=== PATIENT | female | born 1955 | race Caucasian/White ===

== ENCOUNTER 2016-07-31 15:10 | Outpatient (CLI) | payer BC | END 2016-07-31 23:59 | DX: M54.5 Low back pain (principal); E11.9 Type 2 diabetes mellitus without complications; Z87.39 Personal history of other diseases of the musculoskeletal system and connective tissue; Z79.899 Other long term (current) drug therapy ==

== ENCOUNTER 2016-08-05 07:42 | Outpatient (CLI) | payer BC ==
[2016-08-05] MEDS ORDERED: GADOBUTROL 10 MMOL/10 ML VIAL IVP ONE (08:27)
== END 2016-08-05 07:43 | disposition home or self-care (01) ==
DX: M51.26 Other intervertebral disc displacement, lumbar region (principal); M51.24 Other intervertebral disc displacement, thoracic region; M51.36 Other intervertebral disc degeneration, lumbar region; M43.16 Spondylolisthesis, lumbar region; M43.17 Spondylolisthesis, lumbosacral region
CPT/HCPCS: 72158; A9585

== ENCOUNTER 2016-12-05 09:21 | Outpatient (CLI) | payer BC ==
[2016-12-05 09:46] LABS: BASOPHILS # (AUTO) 0.1 10^3/uL (0.0-0.1); BASOPHILS % (AUTO) 1.3 %; EOSINOPHILS # (AUTO) 0.3 10^3/uL (0.0-0.7); EOSINOPHILS % (AUTO) 4.9 %; HCT - HEMATOCRIT 40.2 % (37.0-47.0); HGB - HEMOGLOBIN 13.3 g/dL (12.0-16.0); LYMPHOCYTES # (AUTO) 2.4 10^3/uL (1.5-3.5); MEAN CORPUSCULAR HEMOGLOBIN 27.3 pg (27.0-31.0); MEAN CORPUSCULAR VOLUME 82.7 fL (81.0-99.0); MEAN PLATELET VOLUME 7.8 fL (7.9-10.8); MONOCYTES # (AUTO) 0.4 10^3/uL (0.0-1.0); MONOCYTES % (AUTO) 7.2 %; NEUTROPHILS # (AUTO) 2.7 10^3/uL (1.5-6.6); NEUTROPHILS % (AUTO) 45.6 %; RED BLOOD COUNT 4.86 10^6/uL (4.20-5.40); RED CELL DISTRIBUTION WIDTH 14.7 % (12.0-15.0); UNCORRECTED WHITE BLOOD COUNT 5.9 x10^3/uL; WHITE BLOOD COUNT 5.9 x10^3/uL (4.8-10.8)
[2016-12-05 10:06] LABS: HEMOGLOBIN A1C 0.7 g/dL
[2016-12-05 10:11] LABS: ALBUMIN/GLOBULIN RATIO 1.7 (1.0-2.2); BILIRUBIN,TOTAL 0.8 mg/dL (0.2-1.0); BUN - BLOOD UREA NITROGEN 21 mg/dL (6-20); CALCIUM 9.5 mg/dL (8.5-10.3); CARBON DIOXIDE - CO2 26 mmol/L (21-32); CHLORIDE 104 mmol/L (101-111); CHOL/HDL RATIO 5.2 (<4.4); CHOLESTEROL 201 mg/dL; CREATININE 0.7 mg/dL (0.4-1.0); GFR - MDRD 85 (>89); GLUCOSE 146 mg/dL (70-100); HDL CHOLESTEROL 39 mg/dL; LDL/HDL RATIO 3.3 (<4.4); SODIUM 138 mmol/L (135-145); TOTAL PROTEIN 6.8 g/dL (6.7-8.2); TRIGLYCERIDES 170 mg/dL; VLDL CHOLESTEROL 34 mg/dL
== END 2016-12-05 09:22 | disposition home or self-care (01) ==
LOC: LAB 09:21
PROVIDERS: ATTEND Physician Assistant Medical
DX: Z00.00 Encounter for general adult medical examination without abnormal findings (principal); E78.2 Mixed hyperlipidemia; F32.9 Major depressive disorder, single episode, unspecified; E11.9 Type 2 diabetes mellitus without complications; Z11.59 Encounter for screening for other viral diseases; Z79.899 Other long term (current) drug therapy
CPT/HCPCS: 36415; 80053; 80061; 83036; 84443; 85025; 86803

== ENCOUNTER 2016-12-26 08:51 | Outpatient (CLI) | payer BC ==
--- NOTE | 2016-12-29 16:16 | Mammography Report ---
DIGITAL SCREENING MAMMOGRAM: 12/26/2016 CLINICAL INDICATION: A 61-year-old for screening. COMPARISON: 09/2013, 04/2010, 06/2007 TECHNIQUE: Routine CC and MLO projections were obtained of the breasts. FINDINGS: Scattered fibroglandular tissue is present within the breasts. There are no dominant alfonso s, suspicious microcalcifications, or secondary signs of malignancy. In comparison to the previous st udies, there are no significant changes. ASSESSMENT: NO MAMMOGRAPHIC EVIDENCE OF MALIGNANCY. NO SIGNIFICANT INTERVAL CHANGES. RECOMMENDATION: Screening mammography is recommended annually. BIRADS category 1 - negative. STANDARD QUALIFYING STATEMENTS 1. This examination was reviewed with the aid of Computed-Aided Detection (CAD). 2. A negative or benign imaging report should not delay biopsy if clinically suspicious findings are present. Consider surgical consultation if warranted. More than 5% of cancers are not identified by i maging. 3. Dense breasts may obscure an underlying neoplasm. JOB #: [id number] EXT JOB #:[id number]
== END 2016-12-26 08:52 | disposition home or self-care (01) ==
LOC: DI 08:51
PROVIDERS: ATTEND Physician Assistant Medical
DX: Z12.31 Encounter for screening mammogram for malignant neoplasm of breast (principal)
CPT/HCPCS: 77067

== ENCOUNTER 2016-12-26 08:55 | Outpatient (CLI) | payer BC ==
--- NOTE | 2016-12-26 13:35 | DEXA Report ---
DEXA BONE MINERAL DENSITY SCAN: 12/26/2016 CLINICAL HISTORY: A 61-year-old postmenopausal female. TECHNIQUE: Dual energy x-ray absorptiometry (DXA) was performed on a [employer] system. Regions measured are the AP spine, femoral neck, and, if needed, forearm. COMPARISON: None. In accordance with the International Society for Clinical Densitometry (ISCD) guidelines, data from previous exams may be reanalyzed using current recommendations and techniques. This is done to allow a more accurate basis for comparison with the current study. The data for the hip is as follows: REGION BMD (g/cm/cm) T-SCORE Z-SCORE Neck 0.912 -0.9 -0.3 TOTAL 0.997 -0.1 0.1 NOTE: The femoral neck or total proximal femur, whichever is lowest, is used for classification. The data for the forearm is as follows: REGION BMD (g/cm/cm) T-SCORE Z-SCORE 1/3 0.849 -0.3 0.7 NOTE: The 33% radius of the nondominant forearm is used for classification. IMPRESSION: THE FEMORAL NECK T-SCORE IS -0.9. THIS IS WITHIN NORMAL LIMITS ACCORDING TO THE WORLD HEALTH ORGANIZATION GUIDELINES. TOTAL HIP T-SCORE IS -0.1. THIS IS WITHIN NORMAL LIMITS ACCORDING TO THE WORLD HEALTH ORGANIZATION GUIDELINES. THE RADIUS 33% T-SCORE IS -0.3. THIS IS WITHIN NORMAL LIMITS ACCORDING TO THE WORLD HEALTH ORGANIZATION GUIDELINES. THE WHO CLASSIFICATION BASED ON THE INTERNATIONAL REFERENCE STANDARD IS NORMAL. THE PATIENT HAS NO INCREASED FRACTURE RISK. RECOMMENDATION: Patients with diagnosis of osteoporosis or osteopenia should have regular bone mineral density assessment. For those eligible for Medicare, routine testing is allowed once every 2 years. Testing frequency can be increased for patients who have rapidly progressing disease or for those who are receiving medical therapy to restore bone mass. COMMENT: World Health Organization (WHO) definitions for osteoporosis and osteopenia: NORMAL BMD: T-score at -1.0 or higher, fracture risk is low. OSTEOPENIA BMD: T-score between -1.0 and -2.5, fracture risk is increased. OSTEOPOROSIS BMD: T-score at -2.5 or lower, fracture risk high. National Osteoporosis Foundation recommends: 1. Obtain adequate dietary calcium (at least 1200 mg per day) and vitamin D (400 -800 international units per day). 2. Participate, as appropriate, in regular weightbearing and muscle- strengthening exercise. 3. Avoid tobacco use and reduce alcohol and caffeine intake. 4. For more detailed information see the website at www.NOF.org. MTDD
== END 2016-12-26 08:56 | disposition home or self-care (01) ==
LOC: DI 08:55
PROVIDERS: ATTEND Physician Assistant Medical
DX: Z13.820 Encounter for screening for osteoporosis (principal); Z78.0 Asymptomatic menopausal state
CPT/HCPCS: 77080; 77081

== ENCOUNTER 2017-04-27 07:48 | Outpatient (CLI) | payer BC ==
[2017-04-27 08:27] LABS: HEMOGLOBIN A1C 0.66 g/dL
== END 2017-04-27 07:49 | disposition home or self-care (01) ==
LOC: LAB 07:48
PROVIDERS: ATTEND Physician Assistant Medical
DX: E11.9 Type 2 diabetes mellitus without complications (principal); Z79.899 Other long term (current) drug therapy
CPT/HCPCS: 36415; 82947; 83036

== ENCOUNTER 2017-06-01 13:08 | Outpatient (CLI) | payer BC | END 2017-06-01 13:09 | disposition home or self-care (01) | LOC: SC 13:08 | PROVIDERS: ATTEND Internal Medicine Pulmonary Disease | DX: G47.33 Obstructive sleep apnea (adult) (pediatric) (principal) | CPT/HCPCS: 99212; 99213 ==

== ENCOUNTER 2017-06-24 15:35 | Outpatient (CLI) | payer BC ==
--- NOTE | 2017-06-25 11:58 | CT Report ---
CT LUMBAR SPINE WITHOUT CONTRAST: 06/24/2017 CLINICAL INDICATION: History of fusion, pain. TECHNIQUE: Axial CT images of the lumbar spine were obtained without contrast, following which, sagittal and coronal reconstructions were performed. In accordance with CT protocol optimization, one or more of the following dose reduction techniques were utilized for this exam: Automated exposure control, adjustment of mA and/or KV based on patient size, or use of iterative reconstructive technique. FINDINGS: The lumbar vertebral bodies demonstrate normal height. Degenerative disk and facet disease is present. There is minimal anterolisthesis of L4 on L5. Previous posterior element fusion plates span L3 through L5. The T12-L1 disk demonstrates extensive degenerative changes, with osseous fusion of the disk space. Left foraminal narrowing is present. The L1-L2 disk demonstrates asymmetric disk bulge, left greater than right, producing left foraminal narrowing, but no significant spinal stenosis. At L2-L3, there is broad-based disk bulge without significant spinal or foraminal narrowing. At L3-L4, there is asymmetric disc osteophyte, left greater than right, producing left foraminal narrowing and no significant spinal stenosis. At L4-L5, there is broad-based disk bulge and facet hypertrophy, producing mild spinal stenosis and bilateral foraminal narrowing. At L5-S1, there is bulky facet arthropathy, left greater than right, with left foraminal narrowing. No significant spinal stenosis is present. IMPRESSION: POSTOPERATIVE CHANGES. MULTILEVEL NEURAL FORAMINAL NARROWING. MILD SPINAL STENOSIS AT L4-L5. ERON/ TD: 06/25/2017 12:57 [facility]
== END 2017-06-24 15:36 | disposition home or self-care (01) ==
LOC: DI 15:35
PROVIDERS: ATTEND Neurological Surgery
DX: M48.061 Spinal stenosis, lumbar region without neurogenic claudication (principal); M70.61 Trochanteric bursitis, right hip
CPT/HCPCS: 72131

== ENCOUNTER 2017-07-13 10:08 | Outpatient (CLI) | payer BC | END 2017-07-13 10:09 | disposition home or self-care (01) | LOC: SC 10:08 | PROVIDERS: ATTEND Internal Medicine Pulmonary Disease | DX: G47.33 Obstructive sleep apnea (adult) (pediatric) (principal) | CPT/HCPCS: 99212; 99213 ==

== ENCOUNTER 2017-08-04 09:43 | Outpatient (CLI) | payer BC ==
[2017-08-04 10:53] LABS: ALBUMIN 4.1 g/dL (3.2-5.5); ALBUMIN/GLOBULIN RATIO 1.3 (1.0-2.2); BILIRUBIN,TOTAL 0.5 mg/dL (0.2-1.0); CALCIUM 9.5 mg/dL (8.5-10.3); CREATININE 0.7 mg/dL (0.4-1.0); TOTAL PROTEIN 7.2 g/dL (6.7-8.2)
[2017-08-04 11:34] LABS: HB2 TOTAL 15.1 g/dL; HEMOGLOBIN A1C 0.7 g/dL; HEMOGLOBIN A1C % 6.4 % (4.6-6.2)
== END 2017-08-04 09:44 | disposition home or self-care (01) ==
LOC: LAB 09:43
PROVIDERS: ATTEND Physician Assistant Medical
DX: E11.9 Type 2 diabetes mellitus without complications (principal); Z79.899 Other long term (current) drug therapy
CPT/HCPCS: 36415; 80053; 83036

== ENCOUNTER 2017-09-14 10:03 | Outpatient (CLI) | payer BC | END 2017-09-14 10:04 | disposition critical access hospital (66) | LOC: EMS 10:03 | PROVIDERS: ATTEND Surgery | DX: R41.0 Disorientation, unspecified (principal); R50.9 Fever, unspecified | CPT/HCPCS: A0425; A0427 ==

== ENCOUNTER 2017-09-14 10:20 | Emergency (ER) | payer BC ==
[2017-09-14] MEDS ORDERED: VANCOMYCIN INJ 1 GM in SODIUM CHLORIDE 0.9% 250 ML IV STA (10:30)
[2017-09-14] MEDS ORDERED: ACETAMINOPHEN 1,000 MG/100 ML 100 ML IV STA (10:30)
[2017-09-14] MEDS ORDERED: PIPERACILLIN/TAZOBACTAM 3.375 GM in SODIUM CHLORIDE 0.9% MINIBAG 100 ML IV STA (10:30)
[2017-09-14] MEDS ORDERED: SODIUM CHLORIDE 0.9% 1,000 ML IV ONE (10:30)
--- NOTE | 2017-09-14 10:36 | ED Physician Documentation ---
History of Present Illness - Stated complaint Stated Complaint: SEPSIS - Chief complaint Chief Complaint: General - Additonal information Additional information: hx from EMS and 62 female diabetic s/p 11 hr spine surgery with hardware at [facility] 09/09 admitted for several days then to SNF then signed out of SNF and home X 2-3 days was OK yesterday - back pain but no fever cough NVD urinary sx this AM found her in bed unresponsive and febrile no fall FSBS > 200 Review of Systems Unable to obtain: Unresponsive Constitutional: reports: Fever PD PAST MEDICAL HISTORY - Past Medical History Cardiovascular: None Respiratory: None Neuro: Other Endocrine/Autoimmune: Type 2 diabetes GI: GERD HEENT: None Psych: Post traumatic stress disorder Musculoskeletal: Chronic back pain, Other Derm: Other - Past Surgical History Past Surgical History: Yes General: Appendectomy /DIRECTOR E LEARNING: section - Present Medications Home Medications: Ambulatory Orders Medication Instructions Recorded Confirmed DULoxetine [Cymbalta] 30 mg PO BID 03/16/15 03/16/15 HYDROmorphone [Dilaudid] 1 tab PO Q4HR 03/16/15 03/16/15 Ketorolac [Toradol] 1 tab PO QID 03/16/15 03/16/15 Losartan Potassium 1 tab PO DAILY 03/16/15 03/16/15 Metformin HCl 1 tab PO DAILY 03/16/15 03/16/15 Methocarbamol [Robaxin-750] 1 tab PO QID 03/16/15 03/16/15 Omeprazole 1 tab PO DAILY 03/16/15 03/16/15 Ondansetron HCl [Zofran] 1 tab PO Q6HR 03/16/15 03/16/15 Zolpidem Tartrate 1 tab PO QPM PRN 03/16/15 03/16/15 Cyclobenzaprine HCl 09/14/17 Gabapentin 300 09/14/17 Oxycodone HCl/Acetaminophen 09/14/17 [Oxycodone-Acetaminophen 5-325] - Allergies Allergies/Adverse Reactions: Allergies Allergy/AdvReac Type Severity Reaction Status Date / Time No Known Drug Allergies Allergy Verified 02/14/15 19:07 - Social History Does the pt smoke?: No Smoking Status: Never smoker Does the pt drink ETOH?: No Does the pt have substance abuse?: No PD ED PE NORMAL - Vitals Vital signs reviewed: Yes - General General: No: Alert and oriented X 3 (opens eyes to loud voice but does not answer questions or follow commands) - HEENT HEENT: Atraumatic, PERRL. No: Moist mucous membranes (dry) - Cardiac Cardiac: RRR (tachy) - Respiratory Respiratory: Other (coarse rachel) - Abdomen Abdomen: Non tender, Other (bruising to LLQ abd wall and some small sore to RLQ abd wall suggestive of recent lovenox or insulin injections) - Back Back: Other (dirty soiled dressing, op site with running suture is red and inflammed, no dc) - Derm Derm: Other (warm to touch) - Neuro Neuro: Other (moves all ext). No: Alert and oriented X 3 Results - Vitals Vitals: Vital Signs - 24 hr 09/14/17 09/14/17 09/14/17 10:20 11:00 11:36 Temperature 39.5 C H 40.2 C H Heart Rate 111 H 106 H 119 H Respiratory 24 24 15 Rate Blood Pressure 167/73 H 152/80 H 152/80 H O2 Saturation 87 L 96 93 09/14/17 09/14/17 09/14/17 11:45 12:00 12:15 Temperature Heart Rate 106 H 106 H 102 H Respiratory 24 24 22 Rate Blood Pressure 127/68 134/67 H 131/72 H O2 Saturation 95 96 95 09/14/17 12:25 Temperature 37.4 C Heart Rate 98 Respiratory 20 Rate Blood Pressure 135/62 H O2 Saturation 95 Oxygen O2 Source Nasal cannula Oxygen Flow Rate 4 - EKG (time done) 0939 Rate: Rate (enter#) (108) Rhythm: Sinus tachycardia Chapin: Normal Intervals: Normal [place] QRS: Normal Ischemia: Normal ST segments - Labs Labs: Laboratory Tests 09/14/17 09/14/17 09/14/17 10:35 10:35 10:35 WBC 27.8 H RBC 3.16 L Hgb 8.4 L Hct 26.2 L MCV 82.9 MCH 26.7 L MCHC 32.3 RDW 14.7 Plt Count 510 H MPV 7.3 L Neut # Not Reportable Lymph # Not Reportable [place] # Not Reportable Eos # Not Reportable Baso # Not Reportable Absolute Nucleated RBC Not Reportable Total Counted 100 Band Neuts % (Manual) 9 Reactive Lymphs % (Man) 2 Abnorm Lymph % (Manual) 0 Nucleated RBC % Not Reportable Neutrophils # (Manual) 26.7 H Lymphocytes # (Manual) 0.6 L Monocytes # (Manual) 0.6 Eosinophils # (Manual) 0.0 Basophils # (Manual) 0.0 Differential Comment MANUAL DIFFERENTIAL Manual Slide Review Indicated Platelet Morphology RARE GIANT PLATELETS RBC Morph Micro Appear 1+ POLYCHROMASIA Sodium 132 L Potassium 3.9 Chloride 98 L Carbon Dioxide 23 Anion Gap 11.0 BUN 13 Creatinine 0.7 Estimated GFR (MDRD) 85 L Glucose 240 H Lactic Acid Calcium 8.6 Troponin I < 0.04 Urine Color Urine Clarity Urine pH Ur Specific [place] Urine Protein Urine Glucose (UA) Urine Ketones Urine Occult Blood Urine Nitrite Urine Bilirubin Urine Urobilinogen Ur Leukocyte Esterase Ur Microscopic Review Urine Culture Comments 09/14/17 09/14/17 10:35 11:30 WBC RBC Hgb Hct MCV MCH MCHC RDW Plt Count MPV Neut # Lymph # [place] # Eos # Baso # Absolute Nucleated RBC Total Counted Band Neuts % (Manual) Reactive Lymphs % (Man) Abnorm Lymph % (Manual) Nucleated RBC % Neutrophils # (Manual) Lymphocytes # (Manual) Monocytes # (Manual) Eosinophils # (Manual) Basophils # (Manual) Differential Comment Manual Slide Review Platelet Morphology RBC Morph Micro Appear Sodium Potassium Chloride Carbon Dioxide Anion Gap BUN Creatinine Estimated GFR (MDRD) Glucose Lactic Acid 1.3 Calcium Troponin I Urine Color YELLOW Urine Clarity CLEAR Urine pH 7.0 Ur Specific [place] 1.015 Urine Protein TRACE Urine Glucose (UA) NEGATIVE Urine Ketones NEGATIVE Urine Occult Blood NEGATIVE Urine Nitrite NEGATIVE Urine Bilirubin NEGATIVE Urine Urobilinogen 0.2 (NORMAL) Ur Leukocyte Esterase NEGATIVE Ur Microscopic Review NOT INDICATED Urine Culture Comments NOT INDICATED - Rads (name of study) CXR Radiology: See rad report (rotated but looks like RML infilate suggesting aspiration, per rad ADRIAN infiltrate as well) PD MEDICAL DECISION MAKING - ED course ED course: post op sepsis - source appears to be surgical site as it is erythematous - given vanco zosyn immediately after eval - CXR also shows possible apsiration and pt is hypox - zosyn should cover - on O2, maintaining her airway at this time (breathing spont has a gag, not vomiting) spoke to spine surgeon Dr Kaplan who would like pt in the ICU at 1230 called [facility] setup operator Dr Diestelohorst who accepts in transfer pt respinded well to IV ab and fluids and ofirmev fever down, HR down, sats up, still altered, never hypotensive Departure - Departure Disposition: 02 Transfer Acute Care Hosp Clinical Impression: Sepsis, Pneumonia, Post-operative complication, Anemia, Diabetes Condition: Serious
[2017-09-14 10:45] LABS: BASOPHILS % (AUTO) 0.6 %; EOSINOPHILS % (AUTO) 0.1 %; HGB - HEMOGLOBIN 8.4 g/dL (12.0-16.0); LYMPHOCYTES % (AUTO) 2.2 %; MEAN CORPUSCULAR HEMOGLOBIN 26.7 pg (27.0-31.0); MEAN CORPUSCULAR HGB CONC 32.3 g/dL (32.0-36.0); MEAN CORPUSCULAR VOLUME 82.9 fL (81.0-99.0); MEAN PLATELET VOLUME 7.3 fL (7.9-10.8); MONOCYTES % (AUTO) 4.5 %; NEUTROPHILS % (AUTO) 92.6 %; PLT - PLATELET COUNT 510 10^3/uL (130-450); RED BLOOD COUNT 3.16 10^6/uL (4.20-5.40); RED CELL DISTRIBUTION WIDTH 14.7 % (12.0-15.0); WHITE BLOOD COUNT 27.8 x10^3/uL (4.8-10.8)
[2017-09-14 10:53] LABS: CALCIUM 8.6 mg/dL (8.5-10.3); CREATININE 0.7 mg/dL (0.4-1.0)
[2017-09-14 11:01] LABS: ABNORMAL LYMPHS % (MANUAL) 0 %; LYMPHOCYTES % (MANUAL) 0 %
[2017-09-14 11:03] LABS: BAND NEUTROPHILS % (MANUAL) 9 %; LYMPHOCYTES # (MANUAL) 0.6 10^3/uL (1.5-3.5); MONOCYTES # (MANUAL) 0.6 10^3/uL (0.0-1.0); NEUTROPHILS # (MANUAL) 26.7 10^3/uL (1.5-6.6); NEUTROPHILS % (MANUAL) 87 %
[2017-09-14 11:04] LABS: DIFFERENTIAL COMMENT MANUAL DIFFERENTIAL; PLATELET MORPHOLOGY RARE GIANT PLATELETS (NORMAL)
[2017-09-14 11:35] LABS: BILIRUBIN,URINE NEGATIVE (NEGATIVE); GLUCOSE, URINE (UA) NEGATIVE (NEGATIVE); KETONES,URINE (UA) NEGATIVE (NEGATIVE); LEUKOCYTE ESTERASE, URINE NEGATIVE (NEGATIVE); NITRITE,URINE NEGATIVE (NEGATIVE); OCCULT BLOOD,URINE NEGATIVE (NEGATIVE); PROTEIN,URINE TRACE mg/dL (NEGATIVE); UROBILINOGEN,URINE 0.2 (NORMAL) E.U./dL (NORMAL)
[2017-09-14 11:36] LABS: CLARITY,URINE CLEAR (CLEAR)
[2017-09-14] MEDS ORDERED: SODIUM CHLORIDE 0.9% 2,000 ML IV ONE (12:02)
--- NOTE | 2017-09-14 12:49 | XRAY Preliminary Report ---
Exam: XR CHEST 1 VIEW X-RAY IMPRESSION: 1. Prominent right suprahilar region possible infiltrate versus rotation. 2. Patchy infiltrate left upper lobe RADIA SITE ID: [id number]
--- NOTE | 2017-09-14 12:49 | XRAY Report ---
EXAM: CHEST RADIOGRAPHY EXAM DATE: 09/14/2017 12:14 PM. CLINICAL HISTORY: Septic hypoxic. COMPARISON: None. TECHNIQUE: 1 view. FINDINGS: Lungs/Pleura: Prominence in the right suprahilar region. Increased parenchymal markings left upper herberth ng. No effusion. Decreased lung volumes Mediastinum: Mild cardiomegaly Other: Cervical spine plates IMPRESSION: 1. Prominent right suprahilar region possible infiltrate versus rotation. 2. Patchy infiltrate left upper lobe RADIA Referring Provider Line: [phone] SITE ID: [id number]
[2017-09-14] MEDS ORDERED: LACTATED RINGERS 1,000 ML IV STA (13:06)
[2017-09-14 14:47] VITALS: BP 133/76
== END 2017-09-14 14:17 | disposition short-term general hospital (02) ==
LOC: EDUNIT# → ED 10:20
DX: A41.9 Sepsis, unspecified organism (principal); J18.9 Pneumonia, unspecified organism; T81.4XXA Infection following a procedure, initial encounter; D64.9 Anemia, unspecified; E11.9 Type 2 diabetes mellitus without complications; Z79.84 Long term (current) use of oral hypoglycemic drugs
CPT/HCPCS: 36415; 51702; 71045; 80048; 81003; 83605; 84484; 85025; 87040; 93005; 96365; 96367; 96368; 99285; J0131; J3370; J7120; 81001; 87086

== ENCOUNTER 2017-09-14 14:20 | Outpatient (CLI) | payer BC | END 2017-09-14 23:59 | disposition short-term general hospital (02) | LOC: EMS 14:20 | PROVIDERS: ATTEND Surgery | DX: T81.4XXA Infection following a procedure, initial encounter (principal) | CPT/HCPCS: A0425; A0426 ==

== ENCOUNTER 2017-09-29 11:50 | Outpatient (CLI) | payer BC ==
[2017-09-29 12:34] LABS: BASOPHILS # (AUTO) 0.1 10^3/uL (0.0-0.1); BASOPHILS % (AUTO) 1.1 %; EOSINOPHILS # (AUTO) 0.1 10^3/uL (0.0-0.7); EOSINOPHILS % (AUTO) 1.6 %; HGB - HEMOGLOBIN 9.9 g/dL (12.0-16.0); LYMPHOCYTES # (AUTO) 1.6 10^3/uL (1.5-3.5); LYMPHOCYTES % (AUTO) 18.8 %; MEAN CORPUSCULAR HEMOGLOBIN 26.4 pg (27.0-31.0); MEAN CORPUSCULAR VOLUME 80.1 fL (81.0-99.0); MEAN PLATELET VOLUME 7.6 fL (7.9-10.8); MONOCYTES # (AUTO) 0.7 10^3/uL (0.0-1.0); MONOCYTES % (AUTO) 8.7 %; NEUTROPHILS % (AUTO) 69.8 %; PLT - PLATELET COUNT 544 10^3/uL (130-450); RED BLOOD COUNT 3.77 10^6/uL (4.20-5.40); RED CELL DISTRIBUTION WIDTH 15.7 % (12.0-15.0); WHITE BLOOD COUNT 8.6 x10^3/uL (4.8-10.8)
[2017-09-29 12:53] LABS: ALBUMIN 3.5 g/dL (3.2-5.5); ALBUMIN/GLOBULIN RATIO 1.1 (1.0-2.2); ALKALINE PHOSPHATASE 87 IU/L (42-121); ALT ALANINE AMINOTRANSFERASE 21 IU/L (10-60); AST ASPARTATE AMINOTRANSFERASE 22 IU/L (10-42); BILIRUBIN,TOTAL 0.4 mg/dL (0.2-1.0); BUN - BLOOD UREA NITROGEN 15 mg/dL (6-20); CALCIUM 9.4 mg/dL (8.5-10.3); CARBON DIOXIDE - CO2 25 mmol/L (21-32); CHLORIDE 102 mmol/L (101-111); CK- CREATINE KINASE 29 IU/L (22-269); CREATININE 0.7 mg/dL (0.4-1.0); GFR - MDRD 85 (>89); GLUCOSE 100 mg/dL (70-100); SODIUM 136 mmol/L (135-145); TOTAL PROTEIN 6.7 g/dL (6.7-8.2)
[2017-09-29 12:55] LABS: CRP - C-REACTIVE PROTEIN < 1.0 mg/dL (0-1.0)
== END 2017-09-29 11:51 | disposition home or self-care (01) ==
LOC: LAB.R 11:50
PROVIDERS: ATTEND Internal Medicine Infectious Disease
DX: T81.4XXA Infection following a procedure, initial encounter (principal); A41.51 Sepsis due to Escherichia coli [E. coli]
CPT/HCPCS: 80053; 82550; 85025; 85651; 86140

== ENCOUNTER 2017-10-05 23:31 | Outpatient (CLI) | payer BC ==
[2017-10-05 19:10] LABS: ALBUMIN 3.9 g/dL (3.2-5.5); ALBUMIN/GLOBULIN RATIO 1.3 (1.0-2.2); ALKALINE PHOSPHATASE 74 IU/L (42-121); ALT ALANINE AMINOTRANSFERASE 22 IU/L (10-60); AST ASPARTATE AMINOTRANSFERASE 25 IU/L (10-42); BILIRUBIN,TOTAL 0.6 mg/dL (0.2-1.0); BUN - BLOOD UREA NITROGEN 16 mg/dL (6-20); CALCIUM 9.8 mg/dL (8.5-10.3); CARBON DIOXIDE - CO2 28 mmol/L (21-32); CHLORIDE 101 mmol/L (101-111); CK- CREATINE KINASE 134 IU/L (22-269); CREATININE 0.6 mg/dL (0.4-1.0); GFR - MDRD 102 (>89); GLUCOSE 87 mg/dL (70-100); SODIUM 137 mmol/L (135-145)
[2017-10-05 19:12] LABS: BASOPHILS # (AUTO) 0.2 10^3/uL (0.0-0.1); EOSINOPHILS # (AUTO) 0.1 10^3/uL (0.0-0.7); EOSINOPHILS % (AUTO) 1.6 %; HGB - HEMOGLOBIN 10.6 g/dL (12.0-16.0); LYMPHOCYTES # (AUTO) 2.1 10^3/uL (1.5-3.5); LYMPHOCYTES % (AUTO) 22.9 %; MEAN CORPUSCULAR HEMOGLOBIN 25.7 pg (27.0-31.0); MEAN CORPUSCULAR HGB CONC 31.8 g/dL (32.0-36.0); MEAN CORPUSCULAR VOLUME 80.8 fL (81.0-99.0); MEAN PLATELET VOLUME 8.2 fL (7.9-10.8); MONOCYTES # (AUTO) 0.5 10^3/uL (0.0-1.0); MONOCYTES % (AUTO) 5.7 %; NEUTROPHILS # (AUTO) 6.1 10^3/uL (1.5-6.6); NEUTROPHILS % (AUTO) 67.8 %; PLT - PLATELET COUNT 451 10^3/uL (130-450); RED BLOOD COUNT 4.13 10^6/uL (4.20-5.40); RED CELL DISTRIBUTION WIDTH 16.2 % (12.0-15.0)
[2017-10-05 19:19] LABS: CRP - C-REACTIVE PROTEIN < 1.0 mg/dL (0-1.0)
== END 2017-10-05 23:32 | disposition home or self-care (01) ==
LOC: LAB.R 23:31
PROVIDERS: ATTEND Internal Medicine Infectious Disease
DX: T81.4XXA Infection following a procedure, initial encounter (principal); A41.51 Sepsis due to Escherichia coli [E. coli]
CPT/HCPCS: 80053; 82550; 85025; 85651; 86140

== ENCOUNTER 2017-10-12 08:00 | Outpatient (CLI) | payer BC ==
[2017-10-12 19:03] LABS: BASOPHILS # (AUTO) 0.1 10^3/uL (0.0-0.1); BASOPHILS % (AUTO) 0.9 %; EOSINOPHILS # (AUTO) 0.3 10^3/uL (0.0-0.7); EOSINOPHILS % (AUTO) 3.8 %; LYMPHOCYTES # (AUTO) 1.9 10^3/uL (1.5-3.5); LYMPHOCYTES % (AUTO) 22.6 %; MEAN CORPUSCULAR HEMOGLOBIN 25.5 pg (27.0-31.0); MEAN CORPUSCULAR VOLUME 79.6 fL (81.0-99.0); MEAN PLATELET VOLUME 8.1 fL (7.9-10.8); MONOCYTES # (AUTO) 0.7 10^3/uL (0.0-1.0); MONOCYTES % (AUTO) 7.6 %; NEUTROPHILS # (AUTO) 5.6 10^3/uL (1.5-6.6); NEUTROPHILS % (AUTO) 65.1 %; PLT - PLATELET COUNT 424 10^3/uL (130-450); RED BLOOD COUNT 4.33 10^6/uL (4.20-5.40); RED CELL DISTRIBUTION WIDTH 15.5 % (12.0-15.0); WHITE BLOOD COUNT 8.5 x10^3/uL (4.8-10.8)
[2017-10-12 19:17] LABS: ALBUMIN 3.9 g/dL (3.2-5.5); ALBUMIN/GLOBULIN RATIO 1.3 (1.0-2.2); BILIRUBIN,TOTAL 0.6 mg/dL (0.2-1.0); CALCIUM 9.6 mg/dL (8.5-10.3); CREATININE 0.6 mg/dL (0.4-1.0); TOTAL PROTEIN 6.9 g/dL (6.7-8.2)
== END 2017-10-12 08:01 | disposition home or self-care (01) ==
LOC: LAB.R 08:00
PROVIDERS: ATTEND Internal Medicine Infectious Disease
DX: T81.4XXA Infection following a procedure, initial encounter (principal); A41.51 Sepsis due to Escherichia coli [E. coli]
CPT/HCPCS: 80053; 82550; 85025; 85651; 86140

== ENCOUNTER 2017-10-19 08:00 | Outpatient (CLI) | payer BC ==
[2017-10-19 12:42] LABS: BASOPHILS # (AUTO) 0.1 10^3/uL (0.0-0.1); EOSINOPHILS # (AUTO) 0.2 10^3/uL (0.0-0.7); EOSINOPHILS % (AUTO) 3.1 %; HGB - HEMOGLOBIN 11.4 g/dL (12.0-16.0); LYMPHOCYTES # (AUTO) 2.2 10^3/uL (1.5-3.5); LYMPHOCYTES % (AUTO) 27.8 %; MEAN CORPUSCULAR HEMOGLOBIN 25.7 pg (27.0-31.0); MEAN CORPUSCULAR HGB CONC 32.7 g/dL (32.0-36.0); MEAN CORPUSCULAR VOLUME 78.7 fL (81.0-99.0); MEAN PLATELET VOLUME 7.8 fL (7.9-10.8); MONOCYTES # (AUTO) 0.6 10^3/uL (0.0-1.0); MONOCYTES % (AUTO) 7.5 %; NEUTROPHILS # (AUTO) 4.7 10^3/uL (1.5-6.6); NEUTROPHILS % (AUTO) 60.6 %; PLT - PLATELET COUNT 403 10^3/uL (130-450); RED BLOOD COUNT 4.42 10^6/uL (4.20-5.40); RED CELL DISTRIBUTION WIDTH 15.5 % (12.0-15.0); WHITE BLOOD COUNT 7.8 x10^3/uL (4.8-10.8)
[2017-10-19 13:04] LABS: ALBUMIN 4.1 g/dL (3.2-5.5); ALBUMIN/GLOBULIN RATIO 1.2 (1.0-2.2); ALKALINE PHOSPHATASE 71 IU/L (42-121); ALT ALANINE AMINOTRANSFERASE 30 IU/L (10-60); AST ASPARTATE AMINOTRANSFERASE 30 IU/L (10-42); BILIRUBIN,TOTAL 0.3 mg/dL (0.2-1.0); BUN - BLOOD UREA NITROGEN 16 mg/dL (6-20); CALCIUM 9.8 mg/dL (8.5-10.3); CARBON DIOXIDE - CO2 28 mmol/L (21-32); CHLORIDE 102 mmol/L (101-111); CK- CREATINE KINASE 126 IU/L (22-269); CREATININE 0.7 mg/dL (0.4-1.0); CRP - C-REACTIVE PROTEIN < 1.0 mg/dL (0-1.0); GFR - MDRD 85 (>89); GLUCOSE 101 mg/dL (70-100); SODIUM 138 mmol/L (135-145); TOTAL PROTEIN 7.4 g/dL (6.7-8.2)
== END 2017-10-19 08:01 | disposition home or self-care (01) ==
LOC: LAB.WCP 08:00
PROVIDERS: ATTEND Internal Medicine Infectious Disease
DX: T81.4XXA Infection following a procedure, initial encounter (principal); A41.51 Sepsis due to Escherichia coli [E. coli]
CPT/HCPCS: 80053; 82550; 85025; 85651; 86140

== ENCOUNTER 2017-10-26 09:20 | Outpatient (CLI) | payer BC ==
[2017-10-26 13:14] LABS: BASOPHILS # (AUTO) 0.1 10^3/uL (0.0-0.1); BASOPHILS % (AUTO) 0.7 %; EOSINOPHILS # (AUTO) 0.3 10^3/uL (0.0-0.7); EOSINOPHILS % (AUTO) 3.1 %; HGB - HEMOGLOBIN 11.5 g/dL (12.0-16.0); LYMPHOCYTES # (AUTO) 2.2 10^3/uL (1.5-3.5); LYMPHOCYTES % (AUTO) 27.8 %; MEAN CORPUSCULAR HEMOGLOBIN 25.6 pg (27.0-31.0); MEAN CORPUSCULAR HGB CONC 32.8 g/dL (32.0-36.0); MEAN CORPUSCULAR VOLUME 78.1 fL (81.0-99.0); MEAN PLATELET VOLUME 8.2 fL (7.9-10.8); MONOCYTES # (AUTO) 0.6 10^3/uL (0.0-1.0); MONOCYTES % (AUTO) 7.3 %; NEUTROPHILS # (AUTO) 4.9 10^3/uL (1.5-6.6); NEUTROPHILS % (AUTO) 61.1 %; PLT - PLATELET COUNT 380 10^3/uL (130-450); RED BLOOD COUNT 4.48 10^6/uL (4.20-5.40); RED CELL DISTRIBUTION WIDTH 15.6 % (12.0-15.0); WHITE BLOOD COUNT 8.1 x10^3/uL (4.8-10.8)
[2017-10-26 13:50] LABS: ALBUMIN/GLOBULIN RATIO 1.3 (1.0-2.2); BILIRUBIN,TOTAL 0.2 mg/dL (0.2-1.0); CALCIUM 9.5 mg/dL (8.5-10.3); CREATININE 0.6 mg/dL (0.4-1.0); TOTAL PROTEIN 7.1 g/dL (6.7-8.2)
== END 2017-10-26 09:21 | disposition home or self-care (01) ==
LOC: LAB.R 09:20
PROVIDERS: ATTEND Internal Medicine Infectious Disease
DX: T81.4XXA Infection following a procedure, initial encounter (principal); A41.51 Sepsis due to Escherichia coli [E. coli]
CPT/HCPCS: 80053; 82550; 85025; 85651; 86140

== ENCOUNTER 2017-12-03 14:54 | Outpatient (CLI) | payer BC ==
--- NOTE | 2017-12-03 17:35 | Ultrasound Report ---
BILATERAL LOWER EXTREMITY VENOUS DUPLEX: 12/03/2017 CLINICAL INDICATION: Leg pain. TECHNIQUE: Real-time sonographic vascular imaging was performed by the facing end trimmer through the bilateral lower extremities utilizing both color flow and Doppler spectral analysis. Multiple medical device sales representative static images were saved for review. FINDINGS: A bilateral lower extremity venous sonogram is performed revealing the common femoral, superficial femoral, profunda femoris, and popliteal veins to be adequately visualized without intraluminal defects. There is normal venous compression, augmentation , phasicity, and spontaneity of venous flow. In the calf, the visualized more cephalad portions of posterior tibial and peroneal veins are grossly compressible, without filling defects. Incidental note is made of a Mack's cyst in the left popliteal fossa. IMPRESSION: NO EVIDENCE OF DEEP VENOUS THROMBOSIS. TD: 12/03/2017 16:05 MARICHUY
== END 2017-12-03 14:55 | disposition home or self-care (01) ==
LOC: DI 14:54
PROVIDERS: ATTEND Neurological Surgery
DX: M79.605 Pain in left leg (principal); M79.604 Pain in right leg; M48.061 Spinal stenosis, lumbar region without neurogenic claudication; M70.61 Trochanteric bursitis, right hip
CPT/HCPCS: 93970

== ENCOUNTER 2017-12-06 09:37 | Outpatient (CLI) | payer BC ==
[2017-12-06 09:52] LABS: BASOPHILS # (AUTO) 0.1 10^3/uL (0.0-0.1); BASOPHILS % (AUTO) 1.8 %; EOSINOPHILS # (AUTO) 0.2 10^3/uL (0.0-0.7); EOSINOPHILS % (AUTO) 5.8 %; HGB - HEMOGLOBIN 12.5 g/dL (12.0-16.0); LYMPHOCYTES # (AUTO) 1.3 10^3/uL (1.5-3.5); LYMPHOCYTES % (AUTO) 43.3 %; MEAN CORPUSCULAR HEMOGLOBIN 24.4 pg (27.0-31.0); MEAN CORPUSCULAR HGB CONC 32.4 g/dL (32.0-36.0); MEAN CORPUSCULAR VOLUME 75.4 fL (81.0-99.0); MEAN PLATELET VOLUME 7.1 fL (7.9-10.8); MONOCYTES # (AUTO) 0.5 10^3/uL (0.0-1.0); MONOCYTES % (AUTO) 15.6 %; NEUTROPHILS % (AUTO) 33.5 %; PLT - PLATELET COUNT 285 10^3/uL (130-450); RED CELL DISTRIBUTION WIDTH 15.5 % (12.0-15.0)
[2017-12-06 10:08] LABS: ALBUMIN 3.9 g/dL (3.2-5.5); ALBUMIN/GLOBULIN RATIO 1.2 (1.0-2.2); ALKALINE PHOSPHATASE 85 IU/L (42-121); ALT ALANINE AMINOTRANSFERASE 19 IU/L (10-60); AST ASPARTATE AMINOTRANSFERASE 18 IU/L (10-42); BILIRUBIN,TOTAL 0.6 mg/dL (0.2-1.0); BUN - BLOOD UREA NITROGEN 15 mg/dL (6-20); CALCIUM 9.6 mg/dL (8.5-10.3); CARBON DIOXIDE - CO2 28 mmol/L (21-32); CHLORIDE 103 mmol/L (101-111); CHOL/HDL RATIO 6.5 (<4.4); CHOLESTEROL 247 mg/dL; CREATININE 0.6 mg/dL (0.4-1.0); GFR - MDRD 102 (>89); GLUCOSE 126 mg/dL (70-100); HDL CHOLESTEROL 38 mg/dL; LDL CHOLESTEROL,CALCULATED 149 mg/dL; LDL/HDL RATIO 3.9 (<4.4); SODIUM 139 mmol/L (135-145); TOTAL PROTEIN 7.2 g/dL (6.7-8.2); VLDL CHOLESTEROL 60 mg/dL
[2017-12-06 10:22] LABS: HB2 TOTAL 13.8 g/dL; HEMOGLOBIN A1C 0.57 g/dL; HEMOGLOBIN A1C % 5.9 % (4.6-6.2)
== END 2017-12-06 09:38 | disposition home or self-care (01) ==
LOC: LAB 09:37
PROVIDERS: ATTEND Physician Assistant Medical
DX: I10 Essential (primary) hypertension (principal); E11.9 Type 2 diabetes mellitus without complications; E78.2 Mixed hyperlipidemia; F41.8 Other specified anxiety disorders; Z79.899 Other long term (current) drug therapy
CPT/HCPCS: 36415; 80053; 80061; 82306; 83036; 83721; 84443; 85025

== ENCOUNTER 2017-12-28 11:33 | Outpatient (CLI) | END 2017-12-28 11:34 | disposition home or self-care (01) ==

== ENCOUNTER 2018-01-31 09:57 | Outpatient (CLI) | payer BC ==
[2018-01-31 10:30] LABS: BASOPHILS % (AUTO) 1.2 %; EOSINOPHILS # (AUTO) 0.1 10^3/uL (0.0-0.7); EOSINOPHILS % (AUTO) 1.7 %; HGB - HEMOGLOBIN 12.5 g/dL (12.0-16.0); LYMPHOCYTES # (AUTO) 1.2 10^3/uL (1.5-3.5); LYMPHOCYTES % (AUTO) 38.3 %; MEAN CORPUSCULAR HEMOGLOBIN 25.2 pg (27.0-31.0); MEAN CORPUSCULAR HGB CONC 32.6 g/dL (32.0-36.0); MEAN CORPUSCULAR VOLUME 77.3 fL (81.0-99.0); MONOCYTES # (AUTO) 0.5 10^3/uL (0.0-1.0); MONOCYTES % (AUTO) 15.3 %; NEUTROPHILS # (AUTO) 1.4 10^3/uL (1.5-6.6); NEUTROPHILS % (AUTO) 43.5 %; PLT - PLATELET COUNT 272 10^3/uL (130-450); RED BLOOD COUNT 4.95 10^6/uL (4.20-5.40); RED CELL DISTRIBUTION WIDTH 17.2 % (12.0-15.0); WHITE BLOOD COUNT 3.1 x10^3/uL (4.8-10.8)
[2018-01-31 10:44] LABS: ALT ALANINE AMINOTRANSFERASE 22 IU/L (10-60); AST ASPARTATE AMINOTRANSFERASE 22 IU/L (10-42); LDL CHOLESTEROL,DIRECT 91 mg/dL
== END 2018-01-31 09:58 | disposition home or self-care (01) ==
LOC: LAB 09:57
PROVIDERS: ATTEND Physician Assistant Medical
DX: R68.89 Other general symptoms and signs (principal); Z79.899 Other long term (current) drug therapy; E78.2 Mixed hyperlipidemia
CPT/HCPCS: 36415; 83721; 84450; 84460; 85025

== ENCOUNTER 2018-03-24 16:15 | Outpatient (CLI) | payer BC ==
[2018-03-24 17:00] LABS: HB2 TOTAL 13.1 g/dL; HEMOGLOBIN A1C 0.49 g/dL; HEMOGLOBIN A1C % 5.6 % (4.6-6.2)
== END 2018-03-24 16:16 | disposition home or self-care (01) ==
LOC: LAB 16:15
PROVIDERS: ATTEND Physician Assistant Medical
DX: E11.9 Type 2 diabetes mellitus without complications (principal); Z79.899 Other long term (current) drug therapy
CPT/HCPCS: 36415; 82947; 83036

== ENCOUNTER 2018-03-30 09:15 | Outpatient (CLI) | payer BC ==
[2018-03-30 12:11] LABS: BILIRUBIN,URINE NEGATIVE (NEGATIVE); GLUCOSE, URINE (UA) NEGATIVE (NEGATIVE); KETONES,URINE (UA) NEGATIVE (NEGATIVE); LEUKOCYTE ESTERASE, URINE NEGATIVE (NEGATIVE); NITRITE,URINE NEGATIVE (NEGATIVE); OCCULT BLOOD,URINE NEGATIVE (NEGATIVE); PH,URINE 5.5 PH (5.0-7.5); PROTEIN,URINE NEGATIVE (NEGATIVE); UROBILINOGEN,URINE 0.2 (NORMAL) E.U./dL (NORMAL)
[2018-03-30 12:16] LABS: CLARITY,URINE CLEAR (CLEAR)
== END 2018-03-30 09:16 | disposition home or self-care (01) ==
LOC: LAB.R 09:15
PROVIDERS: ATTEND Physician Assistant Medical
DX: R10.32 Left lower quadrant pain (principal)
CPT/HCPCS: 81001; 81003; 87086

== ENCOUNTER 2018-04-03 09:06 | Outpatient (CLI) | payer BC ==
--- NOTE | 2018-04-04 02:03 | Ultrasound Report ---
Reason: ABD PAIN,LT UPPER QUARD LOWER Procedure Date: 04/03/2018 Accession Number: [id number] / [id number] Procedure: US - Abdomen Complete CPT Code: FULL RESULT: EXAM: ABDOMEN ULTRASOUND EXAM DATE: 04/03/2018 10:20 AM. CLINICAL HISTORY: Abdominal pain. COMPARISON: LUMBAR SPINE W/O 06/24/2017 3:52 PM ABDOMEN/PELVIS W/O 02/18/2015 10:53 AM. TECHNIQUE: Real-time scanning was performed with static images obtained. FINDINGS: Liver: Increased echogenicity without focal abnormality seen. 22 cm. Main portal vein flow: Hepatopetal. Gallbladder: Normal. No stones, wall thickening, or sonographic Torres's sign. Biliary System: Common bile duct measures 5 mm. No intrahepatic or extrahepatic ductal dilatation. Pancreas: Visualized portion is unremarkable. Kidneys: Right: 12 cm longitudinally. Incidental 18 mm interpolar cyst. There may be a parenchymal calcification. No suspicious appearing mass, stones, or hydronephrosis. Left: 11 cm longitudinally. Mild hydronephrosis. No stones or masses seen. Spleen: 14 cm. Mildly enlarged. Aorta and Inferior Vena Cava: Unremarkable. Other: None. IMPRESSION: 1. Mild left hydronephrosis of uncertain etiology. If there is clinical concern for a mildly obstructing nonvisualized ureteral stone, CT could be considered. 2. Fatty liver. 3. Mild splenomegaly. RADIA
== END 2018-04-03 09:07 | disposition home or self-care (01) ==
LOC: DI 09:06
PROVIDERS: ATTEND Physician Assistant Medical
DX: N13.30 Unspecified hydronephrosis (principal); K76.0 Fatty (change of) liver, not elsewhere classified; R16.1 Splenomegaly, not elsewhere classified
CPT/HCPCS: 76700

== ENCOUNTER 2018-04-09 09:19 | Outpatient (CLI) | payer BC ==
--- NOTE | 2018-04-09 16:10 | CT Report ---
Reason: HYDRONEPHROSIS,LEFT Procedure Date: 04/09/2018 Accession Number: [id number] / [id number] Procedure: CT - Abdomen/Pelvis W/O CPT Code: FULL RESULT: EXAM: CT ABDOMEN AND PELVIS EXAM DATE: 04/09/2018 10:00 AM. CLINICAL HISTORY: Hydronephrosis, left. COMPARISONS: Abdomen/pelvis without contrast 02/18/2015 10:53 AM. Abdomen complete 04/03/2018 9:38 AM. TECHNIQUE: Routine helical CT imaging was performed through the abdomen and pelvis. IV contrast: . Enteric contrast: No. Reconstructions: Coronal and sagittal. In accordance with CT protocol optimization, one or more of the following dose reduction techniques were utilized for this exam: automated exposure control, adjustment of mA and/or KV based on patient size, or use of iterative reconstructive technique. FINDINGS: Lung Bases: Unremarkable. Liver: Normal. No masses. Gallbladder/Bile Ducts: Unremarkable. Spleen: Normal. Pancreas: Normal. Adrenal Glands: Normal. Kidneys: Both kidneys are normal and symmetric in size without perinephric fat stranding or hydronephrosis. The left renal ureter is enlarged without periureteral fat stranding or ureteral calculus. No calculi are seen in the bladder. This configuration including the prominent left ureter is unchanged compared to 2015. Peritoneal Cavity/Bowel: Normal. No free fluid, free air or adenopathy. No masses or acute inflammatory process. Pelvic Organs: Normal. The bladder and visualized pelvic organs are within normal limits. Vasculature: Severe abdominal atherosclerosis without aneurysm. Bones: Unchanged configuration of orthopedic hardware. No aggressive osseous lesions are identified. Other: None. IMPRESSION: Stable CT appearance of the left kidney and ureter dating back to 2014. Given stability of the CT appearance of the kidney in comparison to the ultrasound, the following recommendation is made: If the patient is asymptomatic, has normal renal function (urinary protein, hematuria, Cr), and incurs no increased frequency of urinary tract infection including pyelonephritis, the finding of a prominent left renal collecting system could be considered a normal variant anatomy. If this is not clearly established, recommend consideration of a nuclear medicine study to establish functional renal patency as well as split renal function, MAG3 scan. This could then guide potential referral to urology for anatomic evaluation/direct visualization of suspected obstruction via cystoscopy. RADIA
== END 2018-04-09 09:20 | disposition home or self-care (01) ==
LOC: DI 09:19
PROVIDERS: ATTEND Physician Assistant Medical
DX: N13.30 Unspecified hydronephrosis (principal)
CPT/HCPCS: 74176

== ENCOUNTER 2018-07-25 08:00 | Outpatient (CLI) | payer BC ==
[2018-07-25 13:14] LABS: ALBUMIN 3.7 g/dL (3.2-5.5); ALBUMIN/GLOBULIN RATIO 1.4 (1.0-2.2); BILIRUBIN,TOTAL 0.8 mg/dL (0.2-1.0); CALCIUM 9.2 mg/dL (8.5-10.3); CREATININE 0.6 mg/dL (0.4-1.0); TOTAL PROTEIN 6.4 g/dL (6.7-8.2)
[2018-07-25 13:28] LABS: HEMOGLOBIN A1C 0.68 g/dL; HEMOGLOBIN A1C % 6.6 % (4.6-6.2)
== END 2018-07-25 23:59 | disposition home or self-care (01) ==
LOC: LAB.R 08:00
PROVIDERS: ATTEND Physician Assistant Medical
DX: I10 Essential (primary) hypertension (principal); Z79.899 Other long term (current) drug therapy
CPT/HCPCS: 36415; 80053; 83036

== ENCOUNTER 2018-07-25 11:56 | Outpatient (CLI) | payer BC | END 2018-07-25 11:57 | disposition home or self-care (01) | LOC: LAB 11:56 | PROVIDERS: ATTEND Physician Assistant Medical | DX: Z53.9 Procedure and treatment not carried out, unspecified reason (principal) ==

== ENCOUNTER 2019-04-17 08:34 | Outpatient (CLI) | payer BC ==
[2019-04-17 08:54] LABS: BASOPHILS # (AUTO) 0.1 10^3/uL (0.0-0.1); EOSINOPHILS # (AUTO) 0.1 10^3/uL (0.0-0.7); HGB - HEMOGLOBIN 13.5 g/dL (12.0-16.0); LYMPHOCYTES # (AUTO) 2.5 10^3/uL (1.5-3.5); LYMPHOCYTES % (AUTO) 35.5 %; MEAN CORPUSCULAR HEMOGLOBIN 26.5 pg (27.0-31.0); MEAN CORPUSCULAR HGB CONC 32.1 g/dL (32.0-36.0); MEAN CORPUSCULAR VOLUME 82.5 fL (81.0-99.0); MEAN PLATELET VOLUME 9.9 fL (7.9-10.8); MONOCYTES # (AUTO) 0.6 10^3/uL (0.0-1.0); MONOCYTES % (AUTO) 8.9 %; NEUTROPHILS # (AUTO) 3.6 10^3/uL (1.5-6.6); PLT - PLATELET COUNT 308 10^3/uL (130-450); RED CELL DISTRIBUTION WIDTH 13.4 % (12.0-15.0)
[2019-04-17 09:08] LABS: HB2 TOTAL 14.5 g/dL; HEMOGLOBIN A1C 1.05 g/dL; HEMOGLOBIN A1C % 8.8 % (4.6-6.2)
[2019-04-17 09:10] LABS: ALBUMIN 4.4 g/dL (3.2-5.5); ALBUMIN/GLOBULIN RATIO 1.7 (1.0-2.2); ALKALINE PHOSPHATASE 99 IU/L (42-121); ALT ALANINE AMINOTRANSFERASE 62 IU/L (10-60); AST ASPARTATE AMINOTRANSFERASE 44 IU/L (10-42); BILIRUBIN,TOTAL 1.1 mg/dL (0.2-1.0); BUN - BLOOD UREA NITROGEN 19 mg/dL (6-20); CALCIUM 9.4 mg/dL (8.5-10.3); CARBON DIOXIDE - CO2 30 mmol/L (21-32); CHLORIDE 97 mmol/L (101-111); CHOL/HDL RATIO 4.6 (<4.4); CHOLESTEROL 202 mg/dL; CREATININE 0.6 mg/dL (0.4-1.0); GFR - MDRD 101 (>89); GLUCOSE 199 mg/dL (70-100); HDL CHOLESTEROL 44 mg/dL; LDL CHOLESTEROL,CALCULATED 96 mg/dL; LDL/HDL RATIO 2.2 (<4.4); SODIUM 137 mmol/L (135-145); VLDL CHOLESTEROL 62 mg/dL
== END 2019-04-17 08:35 | disposition home or self-care (01) ==
LOC: LAB 08:34
PROVIDERS: ATTEND Nurse Practitioner
DX: E78.5 Hyperlipidemia, unspecified (principal); I10 Essential (primary) hypertension; E11.9 Type 2 diabetes mellitus without complications
CPT/HCPCS: 36415; 80053; 80061; 83036; 83721; 84443; 85025

== ENCOUNTER 2019-05-24 15:33 | Outpatient (CLI) | payer BC ==
[2019-05-24 15:52] LABS: BASOPHILS % (AUTO) 0.5 %; EOSINOPHILS # (AUTO) 0.3 10^3/uL (0.0-0.7); EOSINOPHILS % (AUTO) 3.4 %; HGB - HEMOGLOBIN 13.1 g/dL (12.0-16.0); LYMPHOCYTES # (AUTO) 2.4 10^3/uL (1.5-3.5); LYMPHOCYTES % (AUTO) 32.5 %; MEAN CORPUSCULAR HEMOGLOBIN 27.2 pg (27.0-31.0); MEAN CORPUSCULAR VOLUME 82.5 fL (81.0-99.0); MONOCYTES # (AUTO) 0.7 10^3/uL (0.0-1.0); MONOCYTES % (AUTO) 9.2 %; NEUTROPHILS % (AUTO) 53.9 %; PLT - PLATELET COUNT 303 10^3/uL (130-450); RED BLOOD COUNT 4.81 10^6/uL (4.20-5.40); RED CELL DISTRIBUTION WIDTH 13.4 % (12.0-15.0); WHITE BLOOD COUNT 7.4 x10^3/uL (4.8-10.8)
[2019-05-24 16:03] LABS: ALBUMIN 4.4 g/dL (3.2-5.5); ALBUMIN/GLOBULIN RATIO 1.6 (1.0-2.2); BILIRUBIN,TOTAL 0.7 mg/dL (0.2-1.0); CALCIUM 9.3 mg/dL (8.5-10.3); CREATININE 0.7 mg/dL (0.4-1.0); TOTAL PROTEIN 7.2 g/dL (6.7-8.2)
[2019-05-24 16:06] LABS: HB2 TOTAL 13.2 g/dL; HEMOGLOBIN A1C % 9.1 % (4.6-6.2)
== END 2019-05-24 15:34 | disposition home or self-care (01) ==
LOC: LAB 15:33
PROVIDERS: ATTEND Nurse Practitioner
DX: M54.5 Low back pain (principal); R81 Glycosuria
CPT/HCPCS: 36415; 80053; 83036; 85025

== ENCOUNTER 2019-06-24 10:05 | Outpatient (CLI) | payer BC | END 2019-06-24 10:06 | disposition home or self-care (01) | LOC: DI 10:05 | PROVIDERS: ATTEND Nurse Practitioner | DX: R00.2 Palpitations (principal); I10 Essential (primary) hypertension; E78.5 Hyperlipidemia, unspecified | CPT/HCPCS: 93306 ==

== ENCOUNTER 2019-07-22 16:47 | Outpatient (CLI) | payer BC ==
[2019-07-22 17:15] LABS: ALBUMIN 4.4 g/dL (3.2-5.5); ALBUMIN/GLOBULIN RATIO 1.7 (1.0-2.2); BILIRUBIN,TOTAL 0.9 mg/dL (0.2-1.0); CALCIUM 9.5 mg/dL (8.5-10.3); CREATININE 0.6 mg/dL (0.4-1.0)
== END 2019-07-22 16:48 | disposition home or self-care (01) ==
LOC: LAB 16:47
PROVIDERS: ATTEND Nurse Practitioner
DX: E11.9 Type 2 diabetes mellitus without complications (principal)
CPT/HCPCS: 36415; 80053

== ENCOUNTER 2020-01-11 09:18 | Outpatient (CLI) | payer BC ==
[2020-01-11 10:00] LABS: ALBUMIN 4.4 g/dL (3.2-5.5); ALBUMIN/GLOBULIN RATIO 1.8 (1.0-2.2); BILIRUBIN,TOTAL 1.2 mg/dL (0.2-1.0); CREATININE 0.7 mg/dL (0.4-1.0); TOTAL PROTEIN 6.9 g/dL (6.7-8.2)
[2020-01-11 10:05] LABS: HB2 TOTAL 13.9 g/dL; HEMOGLOBIN A1C 0.85 g/dL; HEMOGLOBIN A1C % 7.7 % (4.6-6.2)
== END 2020-01-11 09:19 | disposition home or self-care (01) ==
LOC: LAB 09:18
PROVIDERS: ATTEND Nurse Practitioner
DX: E11.9 Type 2 diabetes mellitus without complications (principal); Z79.891 Long term (current) use of opiate analgesic; I10 Essential (primary) hypertension
CPT/HCPCS: 36415; 80053; 83036

== ENCOUNTER 2020-04-03 13:02 | Outpatient (CLI) | payer BC ==
--- NOTE | 2020-04-03 13:39 | SLEEP CARE CONSULTATION ---
Information from patient questionnaire entered by Andie Maldonado. I have reviewed and concur with the information entered by Andie Maldonado. This document represents the service I personally performed and the decisions made by me, Nemo Cui MD, [facility]. History of Present Illness Service Date and Time: 04/03/2020 1302 Previous diagnosis: Mild, Obstructive Sleep Apnea-Hypopnea Syndrome AHI: 7.4 (in 2012) Reason for follow up: annual (last seen 2018) Equipment type: CPAP Equipment obtained from: [employer] Mask style: Full face Prior sleep studies: Yes Year and Where: [address] [place] [address] Sleep Type of Sleep Study: Polysomnography HPI additional information: HPI: Ms. Campbell returned today for follow up of nasal CPAP therapy after last seen 2 years ago. She was diagnosed to have mild obstructive sleep apnea- hypopnea syndrome. The patient went to [facility] for the equipment and was fitted with a full face mask. She reports using the device nightly and all through the night. The compliance report shows usage in 180 nights out of the past 180 nights, averaging 10.2 (was 9.7) hours a night. She complained of no particular problem with the device such as soreness on the face, dry nose, epistaxis, nasal congestion or headache. She thinks that the pressure of 8 - 14 cmH2O is comfortable (not lowered to 6 12 cmH2O last year as prescribed). On the CPAP therapy she notices improvement in her sleep quality, and that she wakes up feeling fresher in the morning and more awake/alert during the day. [place] Sleepiness Scale score is 2. Her notices no snore at all. The average residual AHI is 0.7 : and average time in large leak per day is 3 seconds. The 90th percentile pressure is 9.7 cmH2O. CPAP Compliance Data - Data Reviewed with Patient Average duration of nightly device use: 10.2 Compliance rate %: 97.8 (180 days) Current pressure setting (cmH2O): 8-14 Humidity settin Average residual AHI: 0.7 Average large leak: 3 sec Subjective Patient concerns: reports: nasal congestion, dry mouth, nose, throat Initial [place] Sleepiness Scale score: 10 (in 2014) Current [place] Sleepiness Scale score: 2 Allergies and Home Medications Drug allergies reviewed: Yes Home medication list reviewed: Yes Review of Systems Review of systems same as previous: Yes Physical Exam Vital signs obtained and entered by: To minimize the risk of COVID-19 exposure, detailed exam was not performed. Height: 5 ft 2 in Weight: 210 lb Body Mass Index: 38.4 BMI Classification: Obese Impression and Plan IMPRESSION: 1. Obstructive Sleep Apnea-Hypopnea Syndrome, mild, with the patient doing well on nasal CPAP therapy. She has excellent compliance and significant clinical improvement. The current pressure appears effective and comfortable. Overall, she is very satisfied with treatment and plans to continue with it long-term. Because the CPAP is now older than the useful life of 5 years, I will order the patient a new one and make it an autoCPAP set between 6 and 12 cmH2O. PLAN: 1. Prescription made for an autoCPAP, heated humidifier, and related supplies. 2. Try to lose weight 3. Try newer full face masks. 4. Return for follow up after one month on the new machine. Visit Type: In Office Time Spent with Patient (minutes): 15 Provider Statement: I spent 100% of the Face to Face Visit with the patient with greater than 50% spent counseling the patient and coordination of care.
== END 2020-04-03 13:03 | disposition home or self-care (01) ==
LOC: SC 13:02
PROVIDERS: ATTEND Internal Medicine Pulmonary Disease
DX: G47.33 Obstructive sleep apnea (adult) (pediatric) (principal); E66.9 Obesity, unspecified; Z68.38 Body mass index [BMI] 38.0-38.9, adult
CPT/HCPCS: 99212; 99213

== ENCOUNTER 2020-04-26 08:00 | Outpatient (CLI) | payer BC ==
[2020-04-26 19:22] LABS: CALCIUM 9.6 mg/dL (8.5-10.3); CREATININE 0.5 mg/dL (0.4-1.0)
[2020-04-26 19:41] LABS: CREATININE,URINE 76.1 mg/dL; MICROALBUM/CREATININE RATIO,UR 327.2 ug/mg (<30.0); MICROALBUMIN,URINE 24.9 mg/dL (0-300.0)
[2020-04-26 20:07] LABS: HEMOGLOBIN A1c% 7.6 % (4.27-6.07)
== END 2020-04-26 23:59 | disposition home or self-care (01) ==
LOC: LAB.WCP 08:00
PROVIDERS: ATTEND Family Medicine
DX: E11.9 Type 2 diabetes mellitus without complications (principal)
CPT/HCPCS: 36415; 80048; 82043; 82570; 83036

== ENCOUNTER 2020-05-29 11:25 | Outpatient (CLI) | payer BC ==
--- NOTE | 2020-05-29 12:27 | SLEEP CARE CONSULTATION ---
Information from patient questionnaire entered by Andie Maldonado. I have reviewed and concur with the information entered by Andie Maldonado. This document represents the service I personally performed and the decisions made by me, Nemo Cui MD, [facility]. History of Present Illness Service Date and Time: 05/29/2020 1125 Previous diagnosis: Mild, Obstructive Sleep Apnea-Hypopnea Syndrome AHI: 7.4 (in 2012) Reason for follow up: first compliance after device update Equipment type: CPAP Equipment obtained from: [employer] Mask style: Full face Prior sleep studies: Yes Year and Where: [address] [place] [address] Sleep Type of Sleep Study: Polysomnography HPI additional information: HPI: Ms. Campbell returned today to follow up on the nasal CPAP therapy. She was diagnosed to have mild obstructive sleep apnea-hypopnea syndrome and acquired a new ResMed [id number] CPAP from [employer]. The patient wears with a full face mask. She reports using the device nightly and all through the night. The compliance data show usage in 30 out of the past 30 nights, averaging 9.4 hours a night. The > 4 hour compliance rate for the past 30 days is 100%. She complained of no particular problem with the device such as soreness on the face, dry nose, epistaxis, nasal congestion or headache. She thinks that the pressure of 6 12 cmH2O is comfortable. On the CPAP therapy she notices improvement in her sleep quality, and that she wakes up feeling fresher in the morning and more awake/alert during the day. The [place] Sleepiness Scale score 0. The average residual AHI is 0.6; and air leak, 0 L/min. The 90th percentile pressure is 11.5 cmH2O. CPAP Compliance Data - Data Reviewed with Patient Average duration of nightly device use: 9 hr 23 min Compliance rate %: 100 Current pressure setting (cmH2O): 6-12 Humidity settin Average residual AHI: 0.6 Subjective Patient concerns: reports: mask leak noise, condensation in mask/hose, nasal congestion (use a lot of water, whole container mostly), other (headache) Initial [place] Sleepiness Scale score: 10 (in 2014) Current [place] Sleepiness Scale score: 0 Allergies and Home Medications Drug allergies reviewed: Yes Home medication list reviewed: Yes Review of Systems Review of systems same as previous: Yes Physical Exam Vital signs obtained and entered by: To minimize the risk of COVID-19 exposure, detailed exam was not performed. Height: 5 ft 2 in Weight: 210 lb Body Mass Index: 38.4 BMI Classification: Obese Impression and Plan IMPRESSION: 1. Obstructive Sleep Apnea-Hypopnea Syndrome, mild with the patient doing well on nasal CPAP therapy. She has excellent compliance and significant clinical improvement. The current pressure appears effective and comfortable. Her mask fits well. Overall, she is very satisfied with treatment and plans to continue with it long-term. Because the residual AHI is very low, I will lower the pressure range a little. PLAN: 1. AutoCPAP reduced to 4 - 10 cmH2O via the modem. 2. Try to lose weight 3. Return in one year for follow up or earlier if there is any problem with the treatment. Visit Type: In Office Time Spent with Patient (minutes): 15 Provider Statement: I spent 100% of the Face to Face Visit with the patient with greater than 50% spent counseling the patient and coordination of care.
== END 2020-05-29 11:26 | disposition home or self-care (01) ==
LOC: SC 11:25
PROVIDERS: ATTEND Internal Medicine Pulmonary Disease
DX: G47.33 Obstructive sleep apnea (adult) (pediatric) (principal); E66.9 Obesity, unspecified; Z68.38 Body mass index [BMI] 38.0-38.9, adult
CPT/HCPCS: 99212; 99213

== ENCOUNTER 2020-07-27 08:00 | Outpatient (CLI) | payer BC | END 2020-07-27 23:59 | disposition home or self-care (01) | LOC: LAB.WCP 08:00 | PROVIDERS: ATTEND Nurse Practitioner | DX: E11.9 Type 2 diabetes mellitus without complications (principal) | CPT/HCPCS: 81599; 83525 ==

== ENCOUNTER 2020-10-31 08:00 | Outpatient (CLI) | payer BC ==
[2020-10-31 12:49] LABS: CALCIUM 9.5 mg/dL (8.5-10.3); CREATININE 0.6 mg/dL (0.4-1.0); POTASSIUM 4.1 mmol/L (3.5-5.0)
[2020-10-31 12:52] LABS: ESTIMATED AVERAGE GLUCOSE 140 mg/dL (70-100); HEMOGLOBIN A1c% 6.5 % (4.27-6.07)
== END 2020-10-31 23:59 | disposition home or self-care (01) ==
LOC: LAB.WCP 08:00
PROVIDERS: ATTEND Orthopaedic Surgery
DX: E11.9 Type 2 diabetes mellitus without complications (principal)
CPT/HCPCS: 36415; 80048; 83036

== ENCOUNTER 2020-12-21 14:40 | Outpatient (CLI) | payer BC | END 2020-12-21 14:41 | disposition home or self-care (01) | LOC: COV 14:40 | PROVIDERS: ATTEND Family Medicine | DX: R05 Cough (principal); R53.83 Other fatigue; R09.81 Nasal congestion; J34.89 Other specified disorders of nose and nasal sinuses; Z20.822 Contact with and (suspected) exposure to COVID-19 ==

== ENCOUNTER 2021-03-13 08:00 | Outpatient (CLI) | payer BC ==
[2021-03-13 18:00] LABS: BASOPHILS # (AUTO) 0.1 10^3/uL (0.0-0.1); BASOPHILS % (AUTO) 0.7 %; EOSINOPHILS # (AUTO) 0.3 10^3/uL (0.0-0.7); EOSINOPHILS % (AUTO) 3.2 %; HCT - HEMATOCRIT 42.3 % (37.0-47.0); HGB - HEMOGLOBIN 13.6 g/dL (12.0-16.0); LYMPHOCYTES # (AUTO) 2.8 10^3/uL (1.5-3.5); MEAN CORPUSCULAR HEMOGLOBIN 27.3 pg (27.0-31.0); MEAN CORPUSCULAR HGB CONC 32.2 g/dL (32.0-36.0); MEAN CORPUSCULAR VOLUME 84.9 fL (81.0-99.0); MONOCYTES # (AUTO) 0.7 10^3/uL (0.0-1.0); MONOCYTES % (AUTO) 7.5 %; NEUTROPHILS # (AUTO) 5.1 10^3/uL (1.5-6.6); PLT - PLATELET COUNT 297 10^3/uL (130-450); RED BLOOD COUNT 4.98 10^6/uL (4.20-5.40); RED CELL DISTRIBUTION WIDTH 13.1 % (12.0-15.0)
[2021-03-13 18:10] LABS: ALBUMIN 4.6 g/dL (3.2-5.5); ALBUMIN/GLOBULIN RATIO 1.8 (1.0-2.2); ALKALINE PHOSPHATASE 77 IU/L (42-121); ALT ALANINE AMINOTRANSFERASE 50 IU/L (10-60); AST ASPARTATE AMINOTRANSFERASE 34 IU/L (10-42); BILIRUBIN,TOTAL 0.7 mg/dL (0.2-1.0); BUN - BLOOD UREA NITROGEN 16 mg/dL (6-20); CALCIUM 9.6 mg/dL (8.5-10.3); CARBON DIOXIDE - CO2 25 mmol/L (21-32); CHLORIDE 102 mmol/L (101-111); CHOLESTEROL 176 mg/dL; CREATININE 0.6 mg/dL (0.4-1.0); GFR - MDRD 100 (>89); GLUCOSE 105 mg/dL (70-100); HDL CHOLESTEROL 44 mg/dL; LDL CHOLESTEROL,CALCULATED 78 mg/dL; LDL/HDL RATIO 1.8 (<4.4); POTASSIUM 3.9 mmol/L (3.5-5.0); SODIUM 137 mmol/L (135-145); TOTAL PROTEIN 7.2 g/dL (6.7-8.2); TRIGLYCERIDES 272 mg/dL; VLDL CHOLESTEROL 54 mg/dL
[2021-03-13 20:46] LABS: ESTIMATED AVERAGE GLUCOSE 157 mg/dL (70-100); HEMOGLOBIN A1c% 7.1 % (4.27-6.07)
== END 2021-03-13 23:59 | disposition home or self-care (01) ==
LOC: LAB.WCP 08:00
PROVIDERS: ATTEND Family Medicine
DX: E11.9 Type 2 diabetes mellitus without complications (principal)
CPT/HCPCS: 36415; 80053; 80061; 83036; 83721; 85025

== ENCOUNTER 2021-04-06 08:00 | Outpatient (CLI) | payer BC | END 2021-04-06 23:59 | disposition home or self-care (01) | LOC: LAB.N 08:00 | PROVIDERS: ATTEND Family Medicine | DX: R30.0 Dysuria (principal) | CPT/HCPCS: 87077; 87086; 87181 ==

== ENCOUNTER 2021-09-03 09:41 | Outpatient (CLI) | payer BC ==
[2021-09-03 12:03] LABS: BASOPHILS # (AUTO) 0.1 10^3/uL (0.0-0.1); BASOPHILS % (AUTO) 0.8 %; EOSINOPHILS # (AUTO) 0.3 10^3/uL (0.0-0.7); EOSINOPHILS % (AUTO) 3.8 %; HCT - HEMATOCRIT 42.2 % (37.0-47.0); HGB - HEMOGLOBIN 13.6 g/dL (12.0-16.0); LYMPHOCYTES # (AUTO) 1.9 10^3/uL (1.5-3.5); LYMPHOCYTES % (AUTO) 29.8 %; MEAN CORPUSCULAR HEMOGLOBIN 26.9 pg (27.0-31.0); MEAN CORPUSCULAR HGB CONC 32.2 g/dL (32.0-36.0); MEAN CORPUSCULAR VOLUME 83.4 fL (81.0-99.0); MEAN PLATELET VOLUME 9.9 fL (7.9-10.8); MONOCYTES # (AUTO) 0.4 10^3/uL (0.0-1.0); MONOCYTES % (AUTO) 5.5 %; NEUTROPHILS # (AUTO) 3.9 10^3/uL (1.5-6.6); NEUTROPHILS % (AUTO) 59.5 %; PLT - PLATELET COUNT 299 10^3/uL (130-450); RED BLOOD COUNT 5.06 10^6/uL (4.20-5.40); RED CELL DISTRIBUTION WIDTH 13.7 % (12.0-15.0); WHITE BLOOD COUNT 6.5 x10^3/uL (4.8-10.8)
[2021-09-03 12:33] LABS: ALBUMIN 4.2 g/dL (3.2-5.5); ALBUMIN/GLOBULIN RATIO 1.4 (1.0-2.2); ALKALINE PHOSPHATASE 73 IU/L (42-121); ALT ALANINE AMINOTRANSFERASE 79 IU/L (10-60); AST ASPARTATE AMINOTRANSFERASE 48 IU/L (10-42); BILIRUBIN,TOTAL 0.8 mg/dL (0.2-1.0); BUN - BLOOD UREA NITROGEN 14 mg/dL (6-20); CALCIUM 9.6 mg/dL (8.5-10.3); CARBON DIOXIDE - CO2 27 mmol/L (21-32); CHLORIDE 102 mmol/L (101-111); CHOL/HDL RATIO 4.6 (<4.4); CHOLESTEROL 204 mg/dL; CREATININE 0.6 mg/dL (0.4-1.0); GFR - MDRD 100 (>89); GLUCOSE 157 mg/dL (70-100); HDL CHOLESTEROL 44 mg/dL; LDL CHOLESTEROL,CALCULATED 128 mg/dL; LDL/HDL RATIO 2.9 (<4.4); SODIUM 139 mmol/L (135-145); TOTAL PROTEIN 7.3 g/dL (6.7-8.2); TRIGLYCERIDES 158 mg/dL; VLDL CHOLESTEROL 32 mg/dL
[2021-09-03 12:45] LABS: ESTIMATED AVERAGE GLUCOSE 166 mg/dL (70-100); HEMOGLOBIN A1c% 7.4 % (4.27-6.07)
[2021-09-03 13:47] LABS: CREATININE,URINE 160.7 mg/dL; MICROALBUM/CREATININE RATIO,UR 565.7 ug/mg (<30.0); MICROALBUMIN,URINE 90.9 mg/dL (0-300.0)
== END 2021-09-03 09:42 | disposition home or self-care (01) ==
LOC: LAB.N 09:41
PROVIDERS: ATTEND Family Medicine
DX: E11.9 Type 2 diabetes mellitus without complications (principal)
CPT/HCPCS: 36415; 80053; 80061; 82043; 82570; 83036; 83721; 85025

== ENCOUNTER 2021-09-24 06:51 | Outpatient (CLI) | payer BC ==
--- NOTE | 2021-09-24 09:13 | Ultrasound Report ---
PROCEDURE: Abdomen Complete INDICATIONS: ELEVATED LIVER FUNCTION TESTS TECHNIQUE: Real-time scanning was performed of the abdominal and retroperitoneal organs, with image documentatio n. COMPARISON: April 03, 2018. TECHNIQUE: Sonographic evaluation of the abdomen was performed. FINDINGS: AORTA: The visualized abdominal aorta is normal. IVC: The visualized IVC is normal. LIVER: Normal contour, measuring 20.1 cm in length. Increased echogenicity, compatible hepatic stea tosis. The portal vein is patent. PANCREAS: The visualized portions of the pancreas are normal. Gallbladder and biliary tree: Within normal limits. The common bile duct measures 5.1 mm. RIGHT KIDNEY: Normal in appearance with no hydronephrosis. Measuring 11.7 cm in length. The renal c ortex thickness measures 1.8 cm. LEFT KIDNEY: Normal in appearance with no hydronephrosis. Measuring 11 cm in length. The renal gray ex thickness measures 1.5 cm. Spleen: Normal contour, measuring 12.7 cm. No evidence for ascites. IMPRESSION: 1.Hepatic steatosis with enlargement. Reviewed by: Kodi Navarro MD on 09/24/2021 9:12 AM PDT Approved by: Kodi Navarro MD on 09/24/2021 9:12 AM PDT Station ID: [id number]
== END 2021-09-24 06:52 | disposition home or self-care (01) ==
LOC: DI 06:51
PROVIDERS: ATTEND Family Medicine
DX: K76.0 Fatty (change of) liver, not elsewhere classified (principal)

== ENCOUNTER 2021-10-15 11:11 | Outpatient (CLI) | payer BC ==
--- NOTE | 2021-10-15 12:43 | SLEEP CARE CONSULTATION ---
Information from patient questionnaire entered by Ivy Fierro MA. I have reviewed and concur with the information entered by Ivy Fierro MA. This document represents the service I personally performed and the decisions made by , Catalina Piña ARNP. History of Present Illness Service Date and Time: 10/15/2021 1111 Previous diagnosis: Mild, Obstructive Sleep Apnea-Hypopnea Syndrome AHI: 7.4 (in 2012) Reason for follow up: annual (LAST SEEN 05/2020) Equipment type: CPAP Equipment obtained from: [employer] (getting supplies as need) Mask style: Full face Backup mask available: No (needs to keep old mask when replaced) Last cushion change: over a month Prior sleep studies: Yes Year and Where: [address] [place] [address] Sleep Type of Sleep Study: Polysomnography HPI additional information: ESE CARR was diagnosed to have mild, AHI 7.4, obstructive sleep apnea- hypopnea syndrome and returned today for CPAP therapy annual follow-up. Sleep Study - Results Type of Sleep Study: Polysomnography Prior sleep studies: Yes Year and Where: [address] [place] [address] Sleep CPAP Compliance Data - Data Reviewed with Patient Average duration of nightly device use: 11 HOURS Compliance rate %: 100 Current pressure setting (cmH2O): 8-14 Average residual AHI: 0.6 Central apnea: .2 Obstructive apnea: .2 Average large leak: 5.9 Subjective Patient concerns: reports: dry mouth, nose, throat, other (headgear snug at first then loosens). denies: aerophagia, mask discomfort, air blowing in eyes, mask leak noise, condensation in mask/hose, nasal congestion, epistaxis Observed to snore while using device: No Current pressure setting perceived as: comfortable On therapy, patient: reports: sleeping better, awakening more refreshed, being more awake and alert during the day, more rested overall. denies: drowsiness while driving Initial [place] Sleepiness Scale score: 10 (in 2014) Current [place] Sleepiness Scale score: 5 (10/25) Allergies and Home Medications Known drug allergies: No Drug allergies reviewed: Yes Home medication list reviewed: Yes (Losartan for blood pressure) Allergy and home medication list: Allergies hydromorphone [From Dilaudid] Allergy (Verified 08/02/19 15:00) Unknown oxycodone Allergy (Verified 08/02/19 15:00) Unknown Review of Systems Review of systems same as previous: No (Lumbar sciatica steroid injections) Physical Exam Vital signs obtained and entered by: PIERCE STONE Blood Pressure: 131/90 (LEFT) Heart Rate: 70 O2 Saturation: 98 (N94) Height: 5 ft 2 in Weight: 212 lb Weight change since last visit: 2 lb gain Body Mass Index: 38.7 BMI Classification: Obese Impression and Plan 1. Obstructive Sleep Apnea-Hypopnea Syndrome, mild, with excellent treatment compliance and excellent apnea control. On CPAP therapy, the patient has better sleep quality and is more rested overall. She has not concerns or complaints about skin irritation, nasal congestion or epistaxis. Patient's apnea severity and rationale for treatment to reduce apnea, improve sleep quality and reduce cardiovascular and cerebrovascular events was reviewed. I also reviewed the benefit of consistent device use of CPAP for hypertension, diabetes, depression and mood disorder (bipolar). 2. Obesity, unspecified. Patient has gained weight. Currently patients BMI is 38.7. Obesity increases the risk of apnea, CPAP pressure requirements and overall health risks especially cardiovascular and diabetes. Thus patient is advised to lose weight. Weight loss can be done with reducing portion size, reducing refined foods and balancing content with vegetables, fruit and whole grain foods. In addition, patient encouraged to get regular exercise. * Continue auto CPAP pressure at 8-14 cmH2O * Notify me if snoring with mask or feeling that the pressure is too much or too little * Attempt to lose weight * Call this office if any problems using CPAP * Return for follow up in 1 year, or sooner if concerns arise Counseling Topics: Spare mask, Weight loss health impact Visit Type: In Office Time Spent with Patient (minutes): 18 Provider Statement: I spent 100% of the Face to Face Visit with the patient with greater than 50% spent counseling the patient and coordination of care.
[2021-10-15 12:44] VITALS: BP 131/90
== END 2021-10-15 11:12 | disposition home or self-care (01) ==
LOC: SC 11:11
PROVIDERS: ATTEND Nurse Practitioner Family
DX: G47.33 Obstructive sleep apnea (adult) (pediatric) (principal); E66.9 Obesity, unspecified; Z68.38 Body mass index [BMI] 38.0-38.9, adult
CPT/HCPCS: 99212

== ENCOUNTER 2022-05-16 08:39 | Outpatient (CLI) | payer BC ==
[2022-05-16 11:47] LABS: BASOPHILS # (AUTO) 0.1 10^3/uL (0.0-0.1); BASOPHILS % (AUTO) 0.9 %; EOSINOPHILS # (AUTO) 0.3 10^3/uL (0.0-0.7); EOSINOPHILS % (AUTO) 3.7 %; HCT - HEMATOCRIT 42.5 % (37.0-47.0); HGB - HEMOGLOBIN 13.6 g/dL (12.0-16.0); LYMPHOCYTES # (AUTO) 2.7 10^3/uL (1.5-3.5); LYMPHOCYTES % (AUTO) 35.4 %; MEAN CORPUSCULAR HEMOGLOBIN 27.6 pg (27.0-31.0); MEAN CORPUSCULAR VOLUME 86.2 fL (81.0-99.0); MEAN PLATELET VOLUME 9.6 fL (7.9-10.8); MONOCYTES # (AUTO) 0.4 10^3/uL (0.0-1.0); MONOCYTES % (AUTO) 5.7 %; NEUTROPHILS # (AUTO) 4.1 10^3/uL (1.5-6.6); NEUTROPHILS % (AUTO) 53.6 %; PLT - PLATELET COUNT 325 10^3/uL (130-450); RED BLOOD COUNT 4.93 10^6/uL (4.20-5.40); RED CELL DISTRIBUTION WIDTH 12.8 % (12.0-15.0); WHITE BLOOD COUNT 7.6 x10^3/uL (4.8-10.8)
[2022-05-16 12:24] LABS: ESTIMATED AVERAGE GLUCOSE 146 mg/dL (70-100); HEMOGLOBIN A1c% 6.7 % (4.27-6.07)
[2022-05-16 12:37] LABS: ALBUMIN 4.4 g/dL (3.2-5.5); ALBUMIN/GLOBULIN RATIO 1.4 (1.0-2.2); ALKALINE PHOSPHATASE 67 IU/L (42-121); ALT ALANINE AMINOTRANSFERASE 55 IU/L (10-60); AST ASPARTATE AMINOTRANSFERASE 29 IU/L (10-42); BILIRUBIN,TOTAL 0.5 mg/dL (0.2-1.0); BUN - BLOOD UREA NITROGEN 16 mg/dL (6-20); CARBON DIOXIDE - CO2 27 mmol/L (21-32); CHLORIDE 99 mmol/L (101-111); CHOLESTEROL 246 mg/dL; CREATININE 0.7 mg/dL (0.4-1.0); GFR - MDRD 84 (>89); GLUCOSE 134 mg/dL (70-100); HDL CHOLESTEROL 49 mg/dL; LDL CHOLESTEROL,CALCULATED 140 mg/dL; LDL/HDL RATIO 2.9 (<4.4); POTASSIUM 4.1 mmol/L (3.5-5.0); SODIUM 136 mmol/L (135-145); TOTAL PROTEIN 7.5 g/dL (6.7-8.2); TRIGLYCERIDES 286 mg/dL; VLDL CHOLESTEROL 57 mg/dL
[2022-05-16 18:49] LABS: CREATININE,URINE 131.6 mg/dL; MICROALBUM/CREATININE RATIO,UR 96.5 ug/mg (<30.0); MICROALBUMIN,URINE 12.7 mg/dL (0-300.0)
[2022-05-17 06:10] LABS: HBsAG SCREEN Negative (Negative); HCV AB <0.1 s/co ratio (0.0-0.9); HEPATITIS B SURFACE AB QUANT <3.1 mIU/mL (Immunity>9.9)
== END 2022-05-16 08:40 | disposition home or self-care (01) ==
LOC: LAB.N 08:39
PROVIDERS: ATTEND Nurse Practitioner Family
DX: E11.9 Type 2 diabetes mellitus without complications (principal); E78.5 Hyperlipidemia, unspecified; I10 Essential (primary) hypertension; R79.89 Other specified abnormal findings of blood chemistry
CPT/HCPCS: 36415; 80053; 80061; 82043; 82570; 83036; 83721; 85025; 86317; 86704; 86709; 86803; 87340

== ENCOUNTER 2022-06-19 13:03 | Outpatient (CLI) | payer BC | END 2022-06-19 13:04 | disposition home or self-care (01) | LOC: MAC.MOP 13:03 | PROVIDERS: ATTEND Nurse Practitioner Family | DX: R00.2 Palpitations (principal); I10 Essential (primary) hypertension | CPT/HCPCS: 93242 ==

== ENCOUNTER 2022-07-11 11:00 | Outpatient (CLI) | payer BC | END 2022-07-11 11:01 | disposition home or self-care (01) | LOC: MAC.MOP 11:00 | PROVIDERS: ATTEND Nurse Practitioner Family | DX: R00.2 Palpitations (principal); I10 Essential (primary) hypertension; I47.1 Supraventricular tachycardia; I49.1 Atrial premature depolarization; I49.3 Ventricular premature depolarization | CPT/HCPCS: 93244 ==

== ENCOUNTER 2022-09-16 08:56 | Outpatient (CLI) | payer BC ==
[2022-09-16 13:18] LABS: ALBUMIN 4.3 g/dL (3.2-5.5); ALBUMIN/GLOBULIN RATIO 1.6 (1.0-2.2); ALKALINE PHOSPHATASE 60 IU/L (42-121); ALT ALANINE AMINOTRANSFERASE 52 IU/L (10-60); AST ASPARTATE AMINOTRANSFERASE 32 IU/L (10-42); BILIRUBIN,TOTAL 0.9 mg/dL (0.2-1.0); BUN - BLOOD UREA NITROGEN 14 mg/dL (6-20); CALCIUM 9.5 mg/dL (8.5-10.3); CARBON DIOXIDE - CO2 28 mmol/L (21-32); CHLORIDE 101 mmol/L (101-111); CHOL/HDL RATIO 3.5 (<4.4); CHOLESTEROL 166 mg/dL; CREATININE 0.7 mg/dL (0.4-1.0); GFR - MDRD 84 (>89); GLUCOSE 152 mg/dL (70-100); HDL CHOLESTEROL 48 mg/dL; LDL CHOLESTEROL,CALCULATED 91 mg/dL; LDL/HDL RATIO 1.9 (<4.4); POTASSIUM 4.4 mmol/L (3.5-5.0); SODIUM 138 mmol/L (135-145); TRIGLYCERIDES 135 mg/dL; VLDL CHOLESTEROL 27 mg/dL
[2022-09-16 14:06] LABS: ESTIMATED AVERAGE GLUCOSE 160 mg/dL (70-100); HEMOGLOBIN A1c% 7.2 % (4.27-6.07)
== END 2022-09-16 08:57 | disposition home or self-care (01) ==
LOC: LAB.N 08:56
PROVIDERS: ATTEND Nurse Practitioner Family
DX: I10 Essential (primary) hypertension (principal); E78.5 Hyperlipidemia, unspecified; E11.9 Type 2 diabetes mellitus without complications
CPT/HCPCS: 36415; 80053; 80061; 83036; 83721

== ENCOUNTER 2022-10-14 12:15 | Outpatient (CLI) | payer BC ==
--- NOTE | 2022-10-14 16:30 | XRAY Report ---
PROCEDURE: Hips 2V BILAT INDICATIONS: HIP PAIN, CHRONIC TECHNIQUE: 2 views of the right hip and left hip were acquired. COMPARISON: None. FINDINGS: Bones: No fractures or dislocations. No suspicious bony lesions. Moderate bilateral hip osteoarthri tic degenerative changes with mild joint space narrowing and osseous hypertrophy. Lumbosacral spine f ixation hardware. Soft tissues: No suspicious soft tissue calcifications or masses. IMPRESSION: Moderate bilateral hip osteoarthritis. Reviewed by: Janina Yanez MD, PhD on 10/14/2022 4:29 PM PDT Approved by: Janina Yanez MD, PhD on 10/14/2022 4:29 PM PDT Station ID: [id number]
== END 2022-10-14 12:16 | disposition home or self-care (01) ==
LOC: DI 12:15
PROVIDERS: ATTEND Nurse Practitioner Family
DX: M16.0 Bilateral primary osteoarthritis of hip (principal)

== ENCOUNTER 2022-11-11 15:05 | Outpatient (CLI) | payer BC ==
[2022-11-11 15:32] VITALS: BP 139/76
--- NOTE | 2022-11-11 15:32 | SLEEP CARE CONSULTATION ---
Information from patient questionnaire entered by Marcella Dye. I have reviewed and concur with the information entered by Marcella Dye. This document represents the service I personally performed and the decisions made by me, Catalina Piña ARNP. History of Present Illness Service Date and Time: 11/11/2022 1505 Previous diagnosis: Mild, Obstructive Sleep Apnea-Hypopnea Syndrome AHI: 7.4 (in 2012) Reason for follow up: annual (LAST SEEN 10/2021) Equipment type: CPAP (Resmed Airsense 10, s/u 04/2020) Equipment obtained from: [employer] (getting supplies as need) Mask style: Full face Backup mask available: No (will keep old mask when replaced) Last cushion change: over a month Prior sleep studies: Yes Year and Where: [address] [place] [address] Sleep Type of Sleep Study: Polysomnography HPI additional information: ESE CARR was diagnosed to have mild, AHI 7.4, obstructive sleep apnea- hypopnea syndrome and returned today for CPAP therapy annual follow-up. Sleep Study - Results Type of Sleep Study: Polysomnography Prior sleep studies: Yes Year and Where: [address] [place] [address] Sleep CPAP Compliance Data - Data Reviewed with Patient Average duration of nightly device use: 11 hours 21 minutes Compliance rate %: 100 (90/90 days used) Current pressure setting (cmH2O): 8-14 Average residual AHI: 0.8 Central apnea: 0.1 Obstructive apnea: 0.4 Average large leak: 2.1 l/min Subjective Patient concerns: reports: mask leak noise, nasal congestion (sometimes), other (water not always gone in water chamber). denies: aerophagia, mask discomfort, air blowing in eyes, condensation in mask/hose, dry mouth, nose, throat, epistaxis Observed to snore while using device: Yes (occasionally) Current pressure setting perceived as: comfortable On therapy, patient: reports: sleeping better, awakening more refreshed, being more awake and alert during the day, more rested overall. denies: drowsiness while driving Initial [place] Sleepiness Scale score: 10 (in 2014) Current [place] Sleepiness Scale score: 5 Allergies and Home Medications Known drug allergies: Yes (hydromorphone, oxycodone) Drug allergies reviewed: Yes Home medication list reviewed: Yes (water hydration; Cephalexin x 1 week) Allergy and home medication list: Allergies hydromorphone [From Dilaudid] Allergy (Verified 11/10/22 08:55) Unknown oxycodone Allergy (Verified 11/10/22 08:55) Unknown Review of Systems Review of systems same as previous: No (Mastitis (current); hip arthritis; seeking spinal cord stimulator soon) Physical Exam Vital signs obtained and entered by: BAILEY Aquino Blood Pressure: 139/76 (left arm) Cuff size: long Heart Rate: 71 O2 Saturation: 98 Height: 5 ft 2 in Weight: 219 lb 12.8 oz Body Mass Index: 40.1 BMI Classification: Morbidly Obese Impression and Plan 1. Obstructive Sleep Apnea-Hypopnea Syndrome, mild, with good treatment compliance and good apnea control. On CPAP therapy, the patient has better sleep quality and is more rested overall. Patient has significant improvement of their sleep apnea and is satisfied with current CPAP therapy. Patient's apnea severity and rationale for treatment to reduce apnea, improve sleep quality and reduce cardiovascular and cerebrovascular events was reviewed. I also reviewed the benefit of consistent device use of CPAP for hypertension, diabetes, depression and mood disorder (bipolar). 2. Obesity, unspecified. Currently patients BMI is 40.1. Obesity increases the risk of apnea, CPAP pressure requirements and overall health risks especially cardiovascular and diabetes. Thus patient is advised to lose weight. * Continue auto CPAP pressure at 8-14 cmH2O * Update supplies * Notify me if snoring with mask or feeling that the pressure is too much or too little * Attempt to lose weight * Call this office if any problems using CPAP * Return for follow up in 1 year, or sooner if concerns arise Counseling Topics: Spare mask, Weight loss health impact Visit Type: In Office Time Spent with Patient (minutes): 21 Provider Statement: I spent 100% of the Face to Face Visit with the patient with greater than 50% spent counseling the patient and coordination of care.
== END 2022-11-11 15:06 | disposition home or self-care (01) ==
LOC: SC 15:05
PROVIDERS: ATTEND Nurse Practitioner Family
DX: G47.33 Obstructive sleep apnea (adult) (pediatric) (principal); E66.01 Morbid (severe) obesity due to excess calories; Z68.41 Body mass index [BMI] 40.0-44.9, adult
CPT/HCPCS: 99212; 99213

== ENCOUNTER 2022-12-04 08:00 | Outpatient (CLI) | payer BC ==
--- NOTE | 2022-12-05 09:47 | Mammography Report ---
BILATERAL DIGITAL DIAGNOSTIC MAMMOGRAM 3D/2D: 12/04/2022 CLINICAL: Palpable left breast lump. Due for bilateral. Comparison is made to exams dated: 12/26/2016 mammogram and 09/09/2012 mammogram - [facility]. There are scattered areas of fibroglandular density in both breasts (category b / 25%-50% glandular t issue). No significant masses, calcifications, or other findings are seen in either breast. IMPRESSION: INCOMPLETE: NEEDS ADDITIONAL IMAGING EVALUATION No mammographic evidence of malignancy. A targeted ultrasound is recommended and will immediately follow. Based on the Tyrer Cuzick model (a risk assessment model) the patients lifetime risk is 4.3% and her 10 year risk is 2.1%. According to the ACR, ACS, and NCCN guidelines, an annual breast MRI exam fatemeh g with mammogram is recommended if the patients lifetime risk is 20% or greater. This exam was interpreted at Station ID: [id number]. NOTE: For mammograms, a report in lay terms will be sent to the patient. Approximately 15% of breast malignancies will not be visualized mammographically. In the management of a palpable breast mass, a negative mammogram must not discourage biopsy of a clinically suspicious lesion. Electronically Signed By: Terry Wood M.D. slc/:12/04/2022 11:47:00 ACR BI-RADS Category 0: Incomplete 3340F PARENCHYMAL PATTERN: (A) - The breast(s) demonstrate(s) scattered fibroglandular densities. BI-RADS CATEGORY: (0) - 0 Ultrasound [id number] Immediate follow-up LATERALITY: (B)
--- NOTE | 2022-12-05 09:47 | Ultrasound Report ---
LIMITED ULTRASOUND OF LEFT BREAST: 12/04/2022 CLINICAL: Palpable left breast lump and focal pain. Comparison is made to exams dated: 12/04/2022 mammogram, 12/28/2017 mammogram, and 12/26/2016 mammogram - [facility]. Color flow ultrasound of the left breast 9 o'clock region was performed. Taveras scale images of the re al-time examination were reviewed. There is a benign 0.5 cm x 0.4 cm x 0.3 cm oval fluid collection in the left breast at 9 o'clock post erior depth 14 cm from the nipple. This oval fluid collection is hypoechoic. This correlates as pal pated and with area of clinical concern. Color flow imaging demonstrates that there is no vascularit y present. Possible tract to the skin. No surrounding hyperemia. IMPRESSION: BENIGN There is no sonographic evidence of malignancy. The 0.5 cm fluid collection in the left breast is benign. Exam findings were conveyed to the patient. Patient reports that the abnormality is decreased in size post antibiotic treatment. This most like represents a resolving abscess or a small sebaceous cyst. Patient is advised to monitor for significant change. Clinical follow-up as needed. A 1 year screening mammogram is recommended. This exam was interpreted at Station ID: [id number]. Electronically Signed By: Terry Wood M.D. slc/:12/04/2022 12:07:03 Ultrasound BI-RADS: 2 Benign BI-RADS CATEGORY: (2) - 2 Mammogram [id number] 1 year screening LATERALITY: (B)
== END 2022-12-04 23:59 | disposition home or self-care (01) ==
LOC: DI 08:00
PROVIDERS: ATTEND Family Medicine
DX: N63.22 Unspecified lump in the left breast, upper inner quadrant (principal); M79.9 Soft tissue disorder, unspecified

== ENCOUNTER 2022-12-04 10:53 | Outpatient (CLI) | payer BC ==
--- NOTE | 2022-12-04 18:00 | Ultrasound Report ---
PROCEDURE: Head or Neck Soft Tissue INDICATIONS: SOFT TISSUE MASS TECHNIQUE: Real-time scanning was performed of the neck area of concern, with image documentation. COMPARISON: None FINDINGS: At the patient indicated area of clinical concern, the soft tissues of the lower neck right of midlin e, no sonographic abnormality is identified. No definite mass or fluid collection identified. IMPRESSION: No sonographic abnormality identified within the superficial soft tissues at the patient indicated area of concern. Clinical follow-up is recommended, if indicated repeat ultrasound could b e attempted or cross-sectional imaging could be obtained. If performed, placing a skin marker at the area of clinical concern at the time of the examination may be helpful. Reviewed by: Asael Hammonds MD on 12/04/2022 5:59 PM PDT Approved by: Asael Hammonds MD on 12/04/2022 5:59 PM PDT Station ID: [id number]
== END 2022-12-04 10:54 | disposition home or self-care (01) ==
LOC: DI 10:53
PROVIDERS: ATTEND Physician Assistant
DX: M79.9 Soft tissue disorder, unspecified (principal)

== ENCOUNTER 2023-12-16 10:49 | Outpatient (CLI) | payer BC ==
--- NOTE | 2023-12-16 11:24 | Sleep Patient Instructions ---
Sleep Center Visit Summary - Patient Visit Information Reason for Visit: Annual follow-up - Patient Instructions Additional Instructions: You will continue with CPAP therapy with pressure set at 8-14 cmH2O. A supply prescription will be updated with your DME. You will try a chinstrap to keep mouth closed and reduce mouth dryness. We encourage you to continue to try to lose weight. Please follow up with the sleep care office in 1 year. - Clinic Information Contact: [facility] [address] [place] [address] [email or web address] T: [phone]
--- NOTE | 2023-12-16 11:31 | SLEEP CARE CONSULTATION ---
Information from patient questionnaire entered by Jossue Dye. I have reviewed and concur with the information entered by Jossue Dye. This document represents the service I personally performed and the decisions made by , Catalina Piña ARNP. History of Present Illness Service Date and Time: 12/16/2023 1049 Previous diagnosis: Mild, Obstructive Sleep Apnea-Hypopnea Syndrome AHI: 7.4 (in 2012) Reason for follow up: annual (LAST SEEN 11/2022) Equipment type: CPAP (Resmed Airsense 10, s/u 04/2020) Equipment obtained from: [employer] (getting supplies as need) Mask style: Full face Backup mask available: No Last cushion change: within a week Prior sleep studies: Yes Year and Where: [address] [place] [address] Sleep Type of Sleep Study: Polysomnography HPI additional information: ESE CARR was diagnosed to have mild, AHI 7.4, obstructive sleep apnea- hypopnea syndrome and returned today for CPAP therapy annual follow-up. Sleep Study - Results Type of Sleep Study: Polysomnography Prior sleep studies: Yes Year and Where: [address] [place] [address] Sleep CPAP Compliance Data - Data Reviewed with Patient Average duration of nightly device use: 11 HRS 52 MINS Compliance rate %: 100 (12/16/22-12/15/23; 365/365 days used) Current pressure setting (cmH2O): 8-14 Average residual AHI: 0.7 Central apnea: 0.2 Obstructive apnea: 0.3 Hypopnea: 0.2 Average large leak: 2.3 L/min Compliance data discussion: She is dealing with pain and will lay with mask on and not be sleeping. Subjective Patient concerns: reports: nasal congestion (at times), dry mouth, nose, throat (oral venting). denies: aerophagia, mask discomfort, air blowing in eyes, mask leak noise, condensation in mask/hose, epistaxis Observed to snore while using device: Yes (on side or back, mouth open) Current pressure setting perceived as: comfortable On therapy, patient: reports: sleeping better, awakening more refreshed, being more awake and alert during the day, more rested overall, other (pain interrupting her sleep). denies: drowsiness while driving Initial [place] Sleepiness Scale score: 10 (in 2014) Current [place] Sleepiness Scale score: 4 (12/16/23) Allergies and Home Medications Known drug allergies: Yes (as listed) Drug allergies reviewed: Yes Home medication list reviewed: Yes (chlorthalidone) Allergy and home medication list: Allergies hydromorphone [From Dilaudid] Allergy (Verified 12/14/23 09:28) Unknown oxycodone Allergy (Verified 12/14/23 09:28) Unknown Review of Systems Review of systems same as previous: Yes (NO CHANGE) Physical Exam Vital signs obtained and entered by: JOSSUE Hernandez MA Blood Pressure: 112/68 (RIGHT ARM) Cuff size: long Heart Rate: 77 O2 Saturation: 99 Height: 5 ft 2 in Weight: 213 lb Weight change since last visit: 6 lb loss Body Mass Index: 38.9 BMI Classification: Obese Impression and Plan 1. Obstructive Sleep Apnea-Hypopnea Syndrome, mild, with good treatment compliance and good apnea control. On CPAP therapy, the patient has better sleep quality and is more rested overall. Patient has significant improvement of their sleep apnea and is satisfied with current CPAP therapy. Her is telling her that she is snoring with the mask on when on her back and side. She is getting very dry mouth. I think she is oral venting which can be noted as snoring sounds and will cause oral dryness. I advised her to try to use a chinstrap to keep chin up and reduce oral dryness and sounds. She voiced understanding. Patient's apnea severity and rationale for treatment to reduce apnea, improve sleep quality and reduce cardiovascular and cerebrovascular events was reviewed. I also reviewed the benefit of consistent device use of CPAP for hypertension, diabetes, depression and mood disorder (bipolar). 2. Obesity, unspecified. Currently patients BMI is 38.9. She has lost weight. Obesity increases the risk of apnea, CPAP pressure requirements and overall health risks especially cardiovascular and diabetes. Thus patient is advised to continue to try to lose weight. * Continue auto CPAP pressure at 8-14 cmH2O * Update supply prescription * Notify me if snoring with mask or feeling that the pressure is too much or too little * Attempt to lose weight * Call this office if any problems using CPAP * Return for follow up in 12 months, or sooner if concerns arise Counseling Topics: Spare mask, Weight loss health impact Prescriptions: Device supplies Follow up with Sleep Care in: 1 year Visit Type: In Office Time Spent with Patient (minutes): 28 Provider Statement: I spent 100% of the Face to Face Visit with the patient with greater than 50% spent counseling the patient and coordination of care.
[2023-12-16 11:43] VITALS: BP 112/68; O2SAT 99
== END 2023-12-16 10:50 | disposition home or self-care (01) ==
LOC: SC 10:49
PROVIDERS: ATTEND Nurse Practitioner Family
DX: G47.33 Obstructive sleep apnea (adult) (pediatric) (principal); E66.8 Other obesity; Z68.38 Body mass index [BMI] 38.0-38.9, adult
CPT/HCPCS: 99212; 99213